=== PATIENT | female | born 1975 | race Caucasian/White ===

== ENCOUNTER 2020-06-03 07:02 | Outpatient (REF) | payer OTHER, SELFPAY ==
[2020-06-03 10:45] LABS: MANUAL DIFF FLAG NO
[2020-06-03 10:49] LABS: Basophils Percent Auto 0.4 % (0-2); Eosinophils Absolute Auto 0.3 X10*3/uL (0.0-0.4); Hematocrit 40.3 % (37-47); Hemoglobin 13.3 g/dl (12.0-16.0); Imm Gran Abs Auto 0.01 X10*3/uL (0.00-0.03); Imm Gran Pct Auto 0.2 % (0.0-0.4); Lymphocytes Absolute Auto 1.3 X10*3/uL (1.2-4.9); Lymphocytes Percent Auto 28.2 % (20-40); Mean Corpuscular Hemoglobin 29.2 pg (27.0-33.0); Mean Corpuscular Volume 88.6 fL (80-98); Mean Platelet Volume 10.3 fL (9.4-12.3); Monocytes Absolute Auto 0.5 X10*3/uL (0.1-1.2); Monocytes Percent Auto 10.5 % (2-11); Neutrophils Absolute Auto 2.5 X10*3/uL (2.0-8.3); Neutrophils Percent Auto 54.7 % (45-73); Platelet Count 234 X10*3/uL (160-400); Red Blood Count 4.55 X10*6/uL (4.20-5.50); White Blood Count 4.7 X10*3/uL (4.8-10.8)
[2020-06-03 11:29] LABS: Creatinine Urine 120.65 mg/dL; Microalbum/Creatinine Ratio Ur 20.7 ug/mg cr
[2020-06-03 11:33] LABS: Alanine Aminotransferase 17 U/L (0-31); Albumin Level 4.3 g/dL (3.5-5.0); Alkaline Phosphatase 52 U/L (39-117); Anion Gap 11 (12-20); Aspartate Amino Transferase 19 U/L (5-31); Bilirubin Total 0.6 mg/dL (0.0-1.0); Blood Urea Nitrogen 17 mg/dL (9-16); Calcium 9.2 mg/dL (8.4-10.2); Carbon Dioxide 26 mmol/L (22-29); Chloride 104 mmol/L (96-108); Cholesterol 197 mg/dL; Estimated Glomerular Filt Rate > 60; Glucose Random 74 mg/dL (60-115); HDL Cholesterol 73 mg/dL; LDL Cholesterol Calculated 114 mg/dl; Potassium 4.2 mmol/L (3.3-5.1); Sodium 137 mmol/L (135-145); Total Protein 6.9 g/dL (6.5-8.0); Triglycerides 52 mg/dL
[2020-06-03 11:55] LABS: Free T4 (Free Thyroxine) 1.32 ng/dL (0.71-1.85); Thyroid Stimulating Hormone 0.73 uIU/mL (0.32-4.0)
[2020-06-03 12:22] LABS: Folate 7.2 ng/mL (> or = 4.0); Vitamin B12 302 pg/mL (200-900)
== END 2020-06-03 07:03 | disposition home or self-care (01) ==
LOC: HO.WFDLDS 07:02
PROVIDERS: Visit Provider Internal Medicine
DX: E11.65 Type 2 diabetes mellitus with hyperglycemia (principal); E03.9 Hypothyroidism, unspecified; E78.00 Pure hypercholesterolemia, unspecified
CPT/HCPCS: 36415; 80053; 80061; 82043; 82607; 82746; 84439; 84443; 85025

== ENCOUNTER 2021-02-08 13:24 | Outpatient (REF) | payer OTHER, SELFPAY ==
--- NOTE | ~2021-02-08 | MM_ITS ---
EXAMINATION: MM SCREENING DIGITAL BREAST TOMOSYNTHESIS, BILATERAL CLINICAL INFORMATION: Screening. Asymptomatic. The lifetime risk of breast cancer based on the Tyrer-Cuzick Model is 27%. COMPARISON: Mammography: 07/14/2018, 06/24/2017 (baseline) TECHNIQUE: Digital breast tomosynthesis is performed in both the craniocaudal and mediolateral oblique views along with computer-aided detection (CAD). Synthesized 2D images are generated from the tomosynthesis. FINDINGS: The breasts are heterogeneously dense, which may obscure small masses (ACR BI-RADS breast composition Category c). There are no significant masses, abnormal calcifications, or other abnormalities. Breast tissue composition borders on extremely dense. Parenchymal pattern is similar to prior studies. The axilla and skin contours are unremarkable. No significant changes. MM/MM tomosynthesis screening BI IMPRESSION: No mammographic evidence of malignancy. ASSESSMENT: BI-RADS 1: Negative RECOMMENDATION: Routine annual mammography screening. This patient's information was entered into a reminder system with a target due date for their next mammogram.
== END 2021-02-08 13:25 | disposition home or self-care (01) ==
LOC: HO.MAMMO 13:24
PROVIDERS: PCP Internal Medicine; Visit Provider Internal Medicine
DX: Z12.31 Encounter for screening mammogram for malignant neoplasm of breast (principal)
CPT/HCPCS: 77063; 77067

== ENCOUNTER 2021-03-24 13:20 | Outpatient (REF) | payer OTHER, SELFPAY ==
[2021-03-24 13:38] LABS: MANUAL DIFF FLAG NO
[2021-03-24 14:20] LABS: Basophils Percent Auto 0.6 % (0-2); Eosinophils Absolute Auto 0.2 X10*3/uL (0.0-0.4); Eosinophils Percent Auto 3.4 % (0-4); Hemoglobin 12.7 g/dl (12.0-16.0); Imm Gran Abs Auto 0.02 X10*3/uL (0.00-0.03); Imm Gran Pct Auto 0.4 % (0.0-0.4); Lymphocytes Absolute Auto 1.2 X10*3/uL (1.2-4.9); Lymphocytes Percent Auto 24.1 % (20-40); Mean Corpuscular HGB Conc 32.6 g/dl (31.0-35.0); Mean Corpuscular Hemoglobin 28.3 pg (27.0-33.0); Mean Corpuscular Volume 86.9 fL (80.0-98.0); Mean Platelet Volume 10.1 fL (9.4-12.3); Monocytes Absolute Auto 0.4 X10*3/uL (0.1-1.2); Neutrophils Absolute Auto 3.3 x10*3/uL (2.0-8.3); Neutrophils Percent Auto 64.5 % (45-73); Platelet Count 242 X10*3/uL (160-400); Red Blood Count 4.49 X10*6/uL (4.20-5.50); Red Cell Distribution Width 13.2 % (11.0-16.0)
[2021-03-24 14:26] LABS: Estimated Average Glucose 140 mg/dL; Hemoglobin A1c % 6.5 %
[2021-03-24 14:47] LABS: Creatinine Urine 29.33 mg/dL; Microalbumin Urine < 5.0 mg/L
[2021-03-24 14:52] LABS: Alanine Aminotransferase 9 U/L (0-31); Albumin Level 4.3 g/dL (3.5-5.0); Alkaline Phosphatase 58 U/L (39-117); Anion Gap 12 (12-20); Aspartate Amino Transferase 18 U/L (5-31); Bilirubin Total 0.4 mg/dL (0.0-1.0); Blood Urea Nitrogen 16 mg/dL (9-16); Calcium 9.5 mg/dL (8.4-10.2); Carbon Dioxide 25 mmol/L (22-29); Chloride 102 mmol/L (96-108); Cholesterol 217 mg/dL; Estimated Glomerular Filt Rate > 60; Glucose Random 189 mg/dL (60-115); HDL Cholesterol 83 mg/dL; LDL Cholesterol Calculated 119 mg/dl; Potassium 4.2 mmol/L (3.3-5.1); Sodium 135 mmol/L (135-145); Total Protein 7.1 g/dL (6.5-8.0); Triglycerides 78 mg/dL
[2021-03-24 15:13] LABS: Free T4 (Free Thyroxine) 1.02 ng/dL (0.71-1.85); Thyroid Stimulating Hormone 3.59 uIU/mL (0.32-4.0); Vitamin D 25-OH Total 25.8 ng/mL (>30)
[2021-03-24 15:34] LABS: Folate 12.1 ng/mL (> or = 4.0); Vitamin B12 349 pg/mL (200-900)
== END 2021-03-24 13:21 | disposition home or self-care (01) ==
LOC: HO.LAB 13:20
PROVIDERS: PCP Internal Medicine; Visit Provider Internal Medicine
DX: E78.00 Pure hypercholesterolemia, unspecified (principal); E10.65 Type 1 diabetes mellitus with hyperglycemia; E03.9 Hypothyroidism, unspecified
CPT/HCPCS: 36415; 80053; 80061; 82043; 82306; 82607; 82746; 83036; 84439; 84443; 85025

== ENCOUNTER 2021-09-02 06:32 | Day surgery (SDC) | payer OTHER, SELFPAY ==
[2021-09-02] VITALS (8 sets, daily range): BP systolic 97–118; BP diastolic 53–68; PULSE 45–64; RESP 14–18; TEMP 36.3–36.6; O2SAT 98–100; BMI 25.7
--- NOTE | 2021-09-02 07:05 | P.OP_ITS ---
Operative Note Operative Note Date of Service: 09/02/21 Narrative: Preop diagnosis: [Incarcerated ventral hernia, epigastric region] Postop diagnosis: [Same, 6mm fascial defect] Procedure: [Open repair of epigastric hernia with ) polypropylene suture] Surgeon: Danial Colin MD Assist: [none] Anesthesia: [General LMA] Estimated blood loss: [3cc] Specimen: [None] Intraoperative findings: [Viable properitoneal fat was incarcerated through a 6 mm linea alba fascial defect.] Indications: [The patient is a 46-year-old woman with type 1 diabetes who has had a small ventral/epigastric hernia that has persisted since her last and slowly enlarged becoming more symptomatic. Repair was indicated. Options were discussed with the patient including the option of a 2nd opinion, which was declined. I reviewed the inherent risks to hernia repair which include, but are not limited to: Bleeding, infection, hernia recurrence especially if weight gain occurs, wound complications such as hematoma and seroma and need for another procedure, activity restrictions postoperatively were also reviewed and apparently understood. The patient seemed understand all of her options wanted to proceed.] Procedure: [The patient was identified by myself and an interval history ob tained. Being no changes, the patient was marked by myself and brought into the operating suite. 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 She was placed supine on the operating room table and MAC administered with excellent effect. An appropriate time-out was performed. The patient's abdomen was widely prepped and draped in the usual manner using chlorhexidine. I confirmed the preoperatively marked hernia and after infiltrating local, a vertical linear incision was made immediately over the hernia. Dissection was carefully carried down to the rectus fascia and the hernia circumferentially dissected. It contain viable properitoneal fat. After completely dissecting the hernia, fascial margins were freshened and opened and the hernia reduced. Next, 0 polypropylene suture in a [id number] was used to close the defect. The area was inspected for hemostasis which was good. The subcu pocket closed with 3-0 Polysorb and skin closed with 4-0 Monocryl subcuticular sutures. The area was washed and dried, Mastisol and Steri-Strips applied followed by sterile dressings. Patient tolerated the procedure well and was sent to the recover in stable condition. All sponge needle instrument counts were correct. At the patient's request, I called her , Ugo at [phone] and apprised him of the procedure, findings, activity restrictions, pain management. His questions seemed to be satisfactorily answered.]
--- NOTE | 2021-09-02 07:37 | HO.ANESPROP2 ---
HPI - Anesthesia Eval Consult details Narrative: 46 yo female patient for repair of ventral hernia PMFSH Active Problems Active Problems: All Active Problems (Updated 08/13/21 @ 12:34 by Danial Colin MD) Incarcerated ventral hernia (Acute) Cervical cancer screening (Acute) Generalized anxiety disorder (Acute) Onychomycosis (Acute) Breast cancer screening by mammogram (Acute) Annual physical exam (Acute) Hypercholesterolemia (Acute) Diabetes mellitus type 1 (Acute) Hypothyroid (Acute) Was on lisinopril for kidneys secondary to h/o DM. Not taking anymore Past Medical History Medical History Diabetes mellitus type 1 GERD (gastroesophageal reflux disease) Hypercholesterolemia Hypothyroid Leukopenia Family History Family History Father Alive and well Mother Alive and well Breast cancer Maternal Grandmother Ovarian cancer Paternal Aunt Breast cancer Paternal Grandmother Schizophrenia Family history of problems with anesthesia: No Surgical History Surgical History History of section History of tubal ligation Hx of radioactive iodine thyroid ablation History of Problems with Anesthesia: No Social History Social History Housing: House Alcohol intake: current Alcohol intake frequency: a few times a month Patient Tobacco Use Status: Never used Tobacco e-Cigarette/Vaping Use: Never Used Second Hand Smoke Exposure: No Use of substances other than those prescribed or required for medical reasons: No Advance Directives: No Advance Directives Information Provided: Yes Current occupational status: employed Meds Allergies Allergy/AdvReac Type Severity Reaction Status Date / Time tree nut [TREE NUT] Allergy Severe ANAPHYLAXIS Verified 08/26/21 15:24 lisinopril Allergy Unknown cough Verified 08/26/21 15:24 Home Medications Medication Instructions Recorded Confirmed Last Taken Type cholecalciferol (vitamin D3) 50 50 mcg PO DAILY 12/23/20 08/26/21 Unknown History mcg (2,000 unit) capsule Exam Exam Date and Time: September 02, 2021 0737 Height,Weight and Vital Signs: Height 5 ft 4 in Weight 68.039 kg Last Vital Signs Temp 97.9 F 09/02/21 07:04 Pulse 54 09/02/21 07:04 Resp 15 09/02/21 07:04 BP 115/68 09/02/21 07:04 Pulse Ox 100 09/02/21 07:04 O2 Del Method 09/02/21 07:04 Pertinent Lab Results Pertinent Lab Results: Lab Results 09/02/21 Range/Units 07:14 POC Glucose 158 H (60-115) mg/dL Airway Mallampati Class: II TM Dist: >3cm Neck ROM: Full Loose/Missing/Broken Teeth: No (Patient denies) Heart: RRR Lungs: CTAB Assessment and Plan Assessment Anesthesia Assessment: Anesthesia Plan Discussed and Chart Reviewed Final Anesthetic Review Family History of Problems with Anesthesia: No History of Problems with Anesthesia: No NPO: Yes ASA Class: II Final Preanesthetic Review: No Changes in Pt Med Stat, Meds/Allgs Chart Reviewed, Consent Obtained/Reviewed and Anes Risks/Benef Reviewed Patient Risk: Low Procedure Risk: Low Assessment/Block/Sedation in SS: Assess/Block/Sedation-SS Anesthetic Plan Anesthetic Plan: GA Disposition: Standard PACU
[2021-09-02 07:41] LABS: Glucose, Whole Blood 158 mg/dL (60-115)
[2021-09-02] MEDS: Heparin Sodium,Porcine 5,000 UNIT/ML VIAL 5000 UNIT SUBCUT (07:45)
--- NOTE | 2021-09-02 07:49 | PC.NURSE ---
per anesthesia/dr torrez ok to leave insulin pump on at basal rate
== END 2021-09-02 10:45 | disposition home or self-care (01) ==
LOC: HO.SSS 06:32
PROVIDERS: PCP Internal Medicine; Visit Provider Surgery
PROC: (CPT 49561; principal; 2021-09-02 08:20)
DX: K43.6 Other and unspecified ventral hernia with obstruction, without gangrene (principal); K21.9 Gastro-esophageal reflux disease without esophagitis; E78.00 Pure hypercholesterolemia, unspecified; E03.9 Hypothyroidism, unspecified; D72.819 Decreased white blood cell count, unspecified; E10.9 Type 1 diabetes mellitus without complications; Z79.4 Long term (current) use of insulin; Z96.41 Presence of insulin pump (external) (internal); Z79.899 Other long term (current) drug therapy; Z88.8 Allergy status to other drugs, medicaments and biological substances
CPT/HCPCS: 49561; 82947; J0690; J1100; J1642; J2250; J2405; J2795; J3010

== ENCOUNTER 2021-12-28 13:05 | Outpatient (REF) | payer OTHER, SELFPAY ==
[2021-12-28 13:12] LABS: MANUAL DIFF FLAG NO
[2021-12-28 13:52] LABS: Basophils Percent Auto 0.6 % (0-2); Eosinophils Absolute Auto 0.1 X10*3/uL (0.0-0.4); Eosinophils Percent Auto 1.9 % (0-4); Hematocrit 38.2 % (37.0-47.0); Hemoglobin 12.4 g/dl (12.0-16.0); Imm Gran Abs Auto 0.02 X10*3/uL (0.00-0.03); Imm Gran Pct Auto 0.3 % (0.0-0.4); Lymphocytes Absolute Auto 1.4 X10*3/uL (1.2-4.9); Lymphocytes Percent Auto 22.2 % (20-40); Mean Corpuscular HGB Conc 32.5 g/dl (31.0-35.0); Mean Corpuscular Hemoglobin 28.1 pg (27.0-33.0); Mean Corpuscular Volume 86.6 fL (80.0-98.0); Mean Platelet Volume 9.9 fL (9.4-12.3); Monocytes Absolute Auto 0.4 X10*3/uL (0.1-1.2); Monocytes Percent Auto 6.7 % (2-11); Neutrophils Absolute Auto 4.3 x10*3/uL (2.0-8.3); Neutrophils Percent Auto 68.3 % (45-73); Platelet Count 227 X10*3/uL (160-400); Red Blood Count 4.41 X10*6/uL (4.20-5.50); Red Cell Distribution Width 12.9 % (11.0-16.0); White Blood Count 6.3 X10*3/uL (4.8-10.8)
[2021-12-28 15:09] LABS: Appearance Urine Clear; Color Urine Yellow; Glucose Urine UA 250 mg/dL (Negative); Leukocyte Esterase Urine Negative (Negative); Nitrite Urine Negative (Negative); Specific Gravity - Urine >= 1.030 (1.005-1.025); Urine Blood Negative (Negative); Urine Ketones Negative (Negative); Urine Protein Negative (Neg-Trace)
[2021-12-28 15:11] LABS: Bacteria Urine None Seen (None Seen); Hyaline Casts Urine 0-2 /LPF (0-2); RBC Urine 0-2 /HPF (0-2); WBC Urine 0-5 /HPF (0-5)
[2021-12-28 15:37] LABS: Alanine Aminotransferase 9 U/L (0-31); Albumin Level 4.2 g/dL (3.5-5.0); Alkaline Phosphatase 56 U/L (39-117); Anion Gap 13 (12-20); Aspartate Amino Transferase 17 U/L (5-31); Bilirubin Total 0.5 mg/dL (0.0-1.0); Blood Urea Nitrogen 20 mg/dL (9-16); Calcium 9.2 mg/dL (8.4-10.2); Carbon Dioxide 27 mmol/L (22-29); Chloride 102 mmol/L (96-108); Estimated Glomerular Filt Rate > 60; Free T4 (Free Thyroxine) 1.09 ng/dL (0.71-1.85); Glucose Random 118 mg/dL (60-115); Sodium 138 mmol/L (135-145); Thyroid Stimulating Hormone 1.65 uIU/mL (0.32-4.0); Total Protein 6.6 g/dL (6.5-8.0)
== END 2021-12-28 13:06 | disposition home or self-care (01) ==
LOC: HO.LAB 13:05
PROVIDERS: PCP Internal Medicine; Visit Provider Internal Medicine
DX: R51.9 Headache, unspecified (principal)
CPT/HCPCS: 36415; 80053; 81001; 84439; 84443; 85025

== ENCOUNTER 2022-02-10 13:19 | Outpatient (REF) | payer OTHER, SELFPAY ==
--- NOTE | ~2022-02-10 | MM_ITS ---
EXAMINATION: MM SCREENING DIGITAL BREAST TOMOSYNTHESIS, BILATERAL CLINICAL INFORMATION: Screening. Asymptomatic. Family history breast cancer, mother. The lifetime risk of breast cancer based on the Tyrer-Cuzick Model is 22%. COMPARISON: Mammography: 02/08/2021, 07/14/2018, 06/24/2017 (baseline) TECHNIQUE: Digital breast tomosynthesis is performed in both the craniocaudal and mediolateral oblique views along with computer-aided detection (CAD). Synthesized 2D images are generated from the tomosynthesis. FINDINGS: The breasts are heterogeneously dense, which may obscure small masses (ACR BI-RADS breast composition Category c). There are no significant masses, abnormal calcifications, or other abnormalities. Parenchymal pattern is similar to prior studies. There is no developing density or architectural abnormality. Breast tissue composition borders on extremely dense. The axilla and skin contours are unremarkable. No significant changes. MM/MM tomosynthesis screening BI IMPRESSION: No mammographic evidence of malignancy. ASSESSMENT: BI-RADS 1: Negative RECOMMENDATION: Routine annual mammography screening. This patient's information was entered into a reminder system with a target due date for their next mammogram.
== END 2022-02-10 13:20 | disposition home or self-care (01) ==
LOC: HO.MAMMO 13:19
PROVIDERS: PCP Internal Medicine; Visit Provider Internal Medicine
DX: Z12.31 Encounter for screening mammogram for malignant neoplasm of breast (principal)
CPT/HCPCS: 77063; 77067

== ENCOUNTER 2022-08-29 14:19 | Outpatient (AMB) | payer OTHER, SELFPAY ==
[2022-08-29 14:37] VITALS: BP 103/62; PULSE 67; BMI 26.0
--- NOTE | 2022-08-29 14:37 | MHC.OFFVIS ---
Intake Vital Signs 08/29/22 14:37 Height 5 ft 4 in Weight 151 lb 3.794 oz BMI 26.0 BP 103/62 Blood Pressure Location Lt brachial Position Sitting Pulse 67 Intake Visit Reasons: other fecal abnormalities Intake Note: Elsa presents in office as a new.patient for fecal abnormalities PT CC: pt reports having no concerns pt denies any other GI Issues Ignition Specialist Required: No Accompanied by: Self / Same As Patient Allergies tree nut [TREE NUT] Allergy (Severe, Verified 08/29/22 14:38) ANAPHYLAXIS lisinopril Allergy (Unknown, Verified 08/29/22 14:38) cough HPI other fecal abnormalities HPI Details 47 year old? female here today for pre colonoscopy screening.? Patient was sent to us by her PCP.? Patient had positive Cologuard in July. Denies any melena, hematochezia, unintentional weight loss or ribbon like stools. This is her first colonoscopy screening.? Patient denies any gastrointestinal symptoms in the past or at present.? Denies any personal or family history of gastrointestinal disease, colon polyps, or cancer.? Denies history of difficulty with sedation or anesthesia in the past.? Negative for history of sleep apnea.? Denies any history of cardiac, renal, pulmonary, or hepatic disease.?? No history of infectious? diseases like hepatitis A, B, C, HIV or tuberculosis.? Patient is not on any anticoagulation therapy. Patient is type 1 diabetic and is on insulin pump. She will adjust her insulin depending on what her blood sugars will be the day before the procedure. [facility] Medical History Breast cancer screening by mammogram Diabetes mellitus type 1 GERD (gastroesophageal reflux disease) Hypercholesterolemia Hypothyroid Leukopenia Surgical History H/O ventral hernia repair History of section History of tubal ligation Hx of radioactive iodine thyroid ablation Family History Father Alive and well Mother Alive and well Breast cancer Maternal Grandmother Ovarian cancer Paternal Aunt Breast cancer Paternal Grandmother Schizophrenia Mental health disorder Social History Housing: House Alcohol intake: current Alcohol intake frequency: a few times a month Patient Tobacco Use Status: Never used Tobacco e-Cigarette/Vaping Use: Never Used Second Hand Smoke Exposure: No Current occupational status: employed Cognitive needs: No Hearing needs: No Vision needs: No Review of Systems Const Denies weight gain and Denies weight loss ENT Reports no additional complaints, Denies dysphagia and Denies odynophagia Card Reports no additional complaints Resp Reports no additional complaints GI Denies abdominal pain, Denies belching, Denies melena, Denies bloating, Denies change in bowel habits, Denies dysphagia, Denies excessive flatus, Denies dyspepsia, Denies heartburn, Denies diarrhea, Denies loose stools, Denies nausea, Denies odynophagia and Denies vomiting Reports no additional complaints Musc Reports no additional complaints Neuro Reports no additional complaints Psych Reports no additional complaints Endo Reports no additional complaints Physical Exam Vital Signs: Last Vital Signs Pulse 67 08/29/22 14:37 BP 103/62 08/29/22 14:37 BMI result Body Mass Index 26.0 Const General: healthy appearing, no acute distress and well developed Nutritional Appearance: well nourished Orientation/consciousness: patient oriented x3 HEENT Head: Yes normal to inspection, Yes normocephalic and Yes atraumatic Face and sinus: Yes normal facial exam Mouth: Normal oral and palatal mucosa present Throat: Yes posterior oropharynx normal, Yes tonsils normal and Yes uvula midline Eyes General: appearance normal, both eyes and all related structures Neck Neck: Yes normal visual inspection, Yes full ROM and Yes trachea midline Thyroid: Thyroid normal Resp Effort & Inspection: normal respiratory effort, able to speak in complete sentences, no tracheal deviation and symmetric chest movement Auscultation: clear to auscultation bilaterally Cardio Rate: regular rate Heart sounds: S1 normal heart sound present and S2 normal heart sound present GI Inspection: Yes normal to inspection and No distended Palpation (GI): Soft to palpation, not firm, nontender and No hepatosplenomegaly present Auscultation: normal bowel sounds General: Yes no CVA tenderness Back/Spine/Pelvis Back: no CVA tenderness Skin General skin exam: elasticity normal, turgor normal and dry skin Neuro General: patient oriented x3 Psych Appearance: grossly normal Mental Status: mental status grossly normal Speech and movement: Normal speech and movement present Affect: normal affect Assessment & Plan Assessment & Plan (1) Positive colorectal cancer screening using Cologuard test: Comment: July 2022 Code(s): R19.5 - Other fecal abnormalities Plan: Will book patient for procedure today (2) Colon cancer screening: Code(s): Z12.11 - Encounter for screening for malignant neoplasm of colon Plan: Patient denies any GI, cardiac or respiratory symptoms.? Denies any issues with anesthesia in the past.? Denies any history of sleep apnea.? No history infectious diseases in the past or present.? Not on any anticoagulation therapy.? No family or personal history of colon cancer or polyps.? Patient denies melena, hematochezia, unintentional weight loss or ribbon like stools.? Discussed at length the pre-procedure,? prep, diet & medications as well as what to expect prior, during and after the procedure.?? Stressed the importance of good bowel prep. ?Recommended the use of Vaseline or Calmoseptine OTC & baby wipes with bowel movements to promote comfort.? ?Patient verbalizes understanding and agrees to plan of care.? She was given the opportunity to ask questions and all questions answered.? We will see her after the procedure.? Medications: New bisacodyl (Dulcolax (bisacodyl)) take 2 tabs at noon the day before your colonoscopy 10 mg (2 x 5 mg) PO ONCE 1 day 2 tabs 0RF Z12.11 - Encounter for screening for malignant neoplasm of colon polyethylene glycol 3350 (Miralax) As directed by gastroenterology department at [facility] 238 grams PO ONCE 238 grams 0RF Z12.11 - Encounter for screening for malignant neoplasm of colon Coding Level of Care Code New Pt Level 3 (82845) Diagnoses Positive colorectal cancer screening using Cologuard test R19.5 Colon cancer screening Z12.11 Time Spent (min) 40 Comment 30 minutes spent with patient and additional 10 minutes spent reviewing her records
== END 2022-08-29 16:13 | disposition home or self-care (01) ==
PROVIDERS: PCP Internal Medicine; Visit Provider Nurse Practitioner Family
DX: R19.5 Other fecal abnormalities (principal); Z12.11 Encounter for screening for malignant neoplasm of colon
CPT/HCPCS: 99203

== ENCOUNTER → 2022-08-29 14:19 | Outpatient (BNVA) | payer OTHER, SELFPAY | PROVIDERS: PCP Internal Medicine; Visit Provider Nurse Practitioner Family ==

== ENCOUNTER 2022-12-09 07:26 | Day surgery (SDC) | payer OTHER, SELFPAY ==
[2022-12-07 10:44] VITALS: BMI 25.9
--- NOTE | 2022-12-08 11:47 | HO.ANESPROP2 ---
Documented by User: Flaca Campos NP 12/08/22 11:48 HPI - Anesthesia Eval Consult details Narrative: 47yo F for Colonoscopy s/p tubal PMFSH Active Problems Active Problems: All Active Problems (Updated 07/29/22 @ 18:07 by Elysia Mak MD) Positive colorectal cancer screening using Cologuard test (Acute) Colon cancer screening (Acute) COVID-19 virus infection (Acute) Headache (Acute) Incarcerated ventral hernia (Acute) Cervical cancer screening (Acute) Generalized anxiety disorder (Acute) Onychomycosis (Acute) Annual physical exam (Acute) Hypercholesterolemia (Acute) Diabetes mellitus type 1 (Acute) Hypothyroid (Acute) Past Medical History Medical History Breast cancer screening by mammogram Hypercholesterolemia GERD (gastroesophageal reflux disease) Leukopenia Diabetes mellitus type 1 Hypothyroid Family History Family History Father Alive and well Mother Alive and well Breast cancer Maternal Grandmother Ovarian cancer Paternal Aunt Breast cancer Paternal Grandmother Schizophrenia Mental health disorder Family history of problems with anesthesia: No Surgical History Surgical History H/O ventral hernia repair History of tubal ligation Hx of radioactive iodine thyroid ablation History of section History of Problems with Anesthesia: No Social History Social History Housing: House Alcohol intake: current Alcohol intake frequency: a few times a month Patient Tobacco Use Status: Never used Tobacco e-Cigarette/Vaping Use: Never Used Second Hand Smoke Exposure: No Current occupational status: employed Cognitive needs: No Hearing needs: No Vision needs: No Meds Allergies Allergy/AdvReac Type Severity Reaction Status Date / Time tree nut [TREE NUT] Allergy Severe ANAPHYLAXIS Verified 12/09/22 08:14 lisinopril Allergy Unknown cough Verified 12/09/22 08:14 Home Medications Medication Instructions Recorded Confirmed Last Taken Type cholecalciferol (vitamin D3) 50 50 mcg PO DAILY 12/23/20 12/09/22 Unknown History mcg (2,000 unit) capsule Exam Exam Date and Time: December 08, 2022 1147 Height,Weight and Vital Signs: Height 5 ft 4 in Weight 68.492 kg Assessment and Plan Assessment Anesthesia Assessment: Chart Reviewed Final Anesthetic Review Family History of Problems with Anesthesia: No History of Problems with Anesthesia: No Documented by User: Kimberly Larson MD 12/09/22 08:16 [facility] Past Medical History Medical History Breast cancer screening by mammogram Hypercholesterolemia GERD (gastroesophageal reflux disease) Leukopenia Diabetes mellitus type 1 Hypothyroid Family History Family History Father Alive and well Mother Alive and well Breast cancer Maternal Grandmother Ovarian cancer Paternal Aunt Breast cancer Paternal Grandmother Schizophrenia Mental health disorder Surgical History Surgical History H/O ventral hernia repair History of tubal ligation Hx of radioactive iodine thyroid ablation History of section Social History Social History Housing: House Alcohol intake: current Alcohol intake frequency: a few times a month Patient Tobacco Use Status: Never used Tobacco e-Cigarette/Vaping Use: Never Used Second Hand Smoke Exposure: No Current occupational status: employed Cognitive needs: No Hearing needs: No Vision needs: No Meds Allergies Allergy/AdvReac Type Severity Reaction Status Date / Time tree nut [TREE NUT] Allergy Severe ANAPHYLAXIS Verified 12/09/22 08:14 lisinopril Allergy Unknown cough Verified 12/09/22 08:14 Home Medications Medication Instructions Recorded Confirmed Last Taken Type cholecalciferol (vitamin D3) 50 50 mcg PO DAILY 12/23/20 12/09/22 Unknown History mcg (2,000 unit) capsule Exam Airway Mallampati Class: II TM Dist: >3cm Neck ROM: Full Loose/Missing/Broken Teeth: No Heart: RRR Lungs: CTA Assessment and Plan Assessment Anesthesia Assessment: Anesthesia Plan Discussed Final Anesthetic Review NPO: Yes ASA Class: III Final Preanesthetic Review: Meds/Allgs Chart Reviewed, Consent Obtained/Reviewed and Anes Risks/Benef Reviewed Patient Risk: Intermediate Procedure Risk: Low Anesthetic Plan Anesthetic Plan: MAC: Disposition: Standard PACU
--- NOTE | 2022-12-09 07:25 | MHC.SHP ---
Pre-Procedural Eval Section A Date of Service: 12/09/22 The patient is an INPATIENT: No The History & Physical has been completed within 30 days and I have reviewed it.: No Section B Chief Complaint: Other fecal abnormalities Relevant Family History (Specify if Yes): No Relevant Social History: None Present Medications: see Short Stay Collaborative assessment Medical History: Significant History (Diabetes mellitus type 1 GERD (gastroesophageal reflux disease) Hypercholesterolemia Hypothyroid Leukopenia) History of Previous Operations: Relevant previous surgery/procedure and date(s) (H/O ventral hernia repair History of section History of tubal ligation Hx of radioactive iodine thyroid ablation) Allergies: Allergies Allergy/AdvReac Type Severity Reaction Status Date / Time tree nut [TREE NUT] Allergy Severe ANAPHYLAXIS Verified 08/29/22 14:38 lisinopril Allergy Unknown cough Verified 08/29/22 14:38 Review of Systems Sugical H&P ROS: Negative: Constitution, Cardiovascular, Respiratory and Gastrointestinal Exam Surgical H&P Exam: Normal: Heart, Normal: Lungs, Normal: Extremities and Normal: Abdomen Plan Diagnosis/Plan: Unchanged I have reviewed the history and physical and performed a pertinent physical examination on my patient. No changes have occurred unless specified. Time Spent With Patient Time: Total time managing care of this patient today ____ minutes.
[2022-12-09 07:46] VITALS: BP 107/60; PULSE 78; RESP 15; TEMP 36.7; O2SAT 99
[2022-12-09] MEDS: Lactated Ringers 1,000 ML 100 ML IVCONT (08:12)
[2022-12-09 08:16] LABS: Glucose, Whole Blood 171 mg/dL (60-115)
--- NOTE | 2022-12-09 08:35 | W.PM.OPN ---
Operative Note Operative Note Date of Service: 12/09/22 Narrative: COLONOSCOPY TILL CECUM WITH SNARE POLYPECTOMY, SUBMUCOSAL INJECTION AND HEMOCLIP PLACEMENT Pre-op diagnosis: screening, positive Cologuard (1st colonoscopy) Post-op diagnosis:? colon polyp, hemorrhoids Endoscopist:? Raf Mcnulty MD Anesthesia:?MAC Consent: Indications for the procedure and potential complications of bleeding, perforation, reaction to medications and missed diagnosis were discussed with the patient and informed consent was obtained. Instrument: Olympus PCF H 190 L variable stiffness pediatric colonoscope Monitoring: Vital signs and clinical assessment, intermittent blood pressure monitoring, continuous EKG monitoring, Pulse oximetry and Carbon Dioxide monitoring were done throughout the procedure. Please see anesthesia flowsheet. Colon withdrawl time was 24 minutes. Procedure: The patient was placed in the left lateral decubitis position and pre-procedure medications were administered. After a digital rectal examination of the ano-rectum, the video colonoscope was inserted into the rectum and advanced through the colon to the cecum. The colonoscope was slowly withdrawn in a retrograde panoramic fashion and the colon mucosa was carefully examined including a retroflexed view of the rectum. Findings and interventions are described below. Procedure Difficulty: colon was long and tortuous and there was some loop formation Findings: Terminal Ileum: Not evaluated Cecum: A 2.5 x 3 cms flat polyp raised with 5 cc of Eleview and removed with a stiff, hot snare. Polypectomy site was closed with 3 hemoclips and marked by Dayana ink Ascending Colon: Normal Transverse Colon: Normal Descending Colon: Normal Sigmoid Colon: normal Rectum: Normal Ano-rectum: Small internal hemorrhoids Colon preparation: Good Impression and Post Procedure Diagnosis: Colonoscopy Findings: One large flat polyp removed Moderate hemorrhoids on retroflexed exam. Plan: Await pathology results Patient has an appointment on 12/21/22 in the GI Clinic with Nupur Eastman FNP-BC . Repeat Colonoscopy interval based on path results - in 6 to 12 months if polyp is adenomatous and 10 years if polyps are hyperplastic (adult colonoscope for future colonoscopies). Above findings were reviewed with the patient and colon polyps and diverticulosis handouts were given in the discharge area.
[2022-12-09 09:20] VITALS: BP 109/59; PULSE 74; RESP 18; TEMP 36.4; O2SAT 98
[2022-12-09 09:35] VITALS: BP 107/63; PULSE 68; RESP 18; TEMP 36.1; O2SAT 100
== END 2022-12-09 10:03 | disposition home or self-care (01) ==
PROVIDERS: PCP Internal Medicine; Visit Provider Internal Medicine Gastroenterology
PROC: 0DJD8ZZ Inspection of Lower Intestinal Tract, Via Natural or Artificial Opening Endoscopic (ICD-10-PCS; CPT 45378; principal; 2022-12-09 08:30)
DX: R19.5 Other fecal abnormalities (principal); D12.0 Benign neoplasm of cecum; K64.8 Other hemorrhoids; K21.9 Gastro-esophageal reflux disease without esophagitis; D72.819 Decreased white blood cell count, unspecified; E78.00 Pure hypercholesterolemia, unspecified; E03.9 Hypothyroidism, unspecified; E10.9 Type 1 diabetes mellitus without complications; Z79.4 Long term (current) use of insulin; Z96.41 Presence of insulin pump (external) (internal); Z79.899 Other long term (current) drug therapy; Z88.8 Allergy status to other drugs, medicaments and biological substances
CPT/HCPCS: 45385; 45381; 82947; 88305

== ENCOUNTER → 2022-12-09 07:26 | Outpatient (BNV) | payer OTHER, SELFPAY | PROVIDERS: PCP Internal Medicine; Visit Provider Internal Medicine Gastroenterology | DX: Z12.11 Encounter for screening for malignant neoplasm of colon (principal); R19.5 Other fecal abnormalities; K64.8 Other hemorrhoids; D12.0 Benign neoplasm of cecum | CPT/HCPCS: 45381; 45385 ==

== ENCOUNTER 2022-12-21 13:13 | Outpatient (AMB) | payer OTHER, SELFPAY ==
--- NOTE | 2022-12-21 13:30 | MHC.OFFVIS ---
Intake Vital Signs 12/21/22 13:32 Height 5 ft 4 in Weight 150 lb BMI 25.7 BP 104/67 Blood Pressure Location Lt brachial Position Sitting Pulse 61 Intake Visit Reasons: S/P Cordell; Dr. Mcnulty Intake Note: Patient follow up for Colonoscopy results. Patient denies any GI issues. Car Icer Required: No Accompanied by: Self / Same As Patient Allergies tree nut [TREE NUT] Allergy (Severe, Verified 12/21/22 13:29) ANAPHYLAXIS lisinopril Allergy (Unknown, Verified 12/21/22 13:29) cough HPI S/P Cordell; Dr. Mcnulty HPI Details LAST VISIT Positive colorectal cancer screening using Cologuard test Will book patient for procedure today Colon cancer screening Patient denies any GI, cardiac or respiratory symptoms.? Denies any issues with anesthesia in the past.? Denies any history of sleep apnea.? No history infectious diseases in the past or present.? Not on any anticoagulation therapy.? No family or personal history of colon cancer or polyps.? Patient denies melena, hematochezia, unintentional weight loss or ribbon like stools.? Discussed at length the pre-procedure,? prep, diet & medications as well as what to expect prior, during and after the procedure.?? Stressed the importance of good bowel prep. ?Recommended the use of Vaseline or Calmoseptine OTC & baby wipes with bowel movements to promote comfort.? ?Patient verbalizes understanding and agrees to plan of care.? She was given the opportunity to ask questions and all questions answered.? We will see her after the procedure.? COLONOSCOPY Findings: Terminal Ileum: Not evaluated Cecum: A 2.5 x 3 cms flat polyp raised with 5 cc of Eleview and removed with a stiff, hot snare. Polypectomy site was closed with 3 hemoclips and marked by Dayana ink Ascending Colon: Normal Transverse Colon: Normal Descending Colon: Normal Sigmoid Colon: normal Rectum: Normal Ano-rectum: Small internal hemorrhoids Colon preparation: Good Impression and Post Procedure Diagnosis: Colonoscopy Findings: One large flat polyp removed Moderate hemorrhoids on retroflexed exam. Plan: Repeat Colonoscopy interval based on path results - in 6 to 12 months if polyp is adenomatous and 10 years if polyps are hyperplastic (adult colonoscope for future colonoscopies). PATHOLOGY: Diagnosis Colon, cecal polyp: Sessile serrated lesion/polyp without dysplasia TODAY'S VISIT: Patient is here today for follow-up and to discuss colonoscopy results. Patient had large cecal sessile serrated polyp that was piecemeal removed in 3 pieces. Recommendation was made for colorectal screening in 6-12 months. Patient denies melena, hematochezia, unintentional weight loss or ribbon like stools. Patient denies any dyspepsia, dysphagia or odynophagia. Patient reports that she has been moving her bowels well. Denies any issue with the prep, anesthesia or procedure itself. [facility] Medical History Breast cancer screening by mammogram Hypercholesterolemia GERD (gastroesophageal reflux disease) Leukopenia Diabetes mellitus type 1 Hypothyroid Surgical History H/O ventral hernia repair History of tubal ligation Hx of radioactive iodine thyroid ablation History of section Family History Father Alive and well Mother Alive and well Breast cancer Maternal Grandmother Ovarian cancer Paternal Aunt Breast cancer Paternal Grandmother Schizophrenia Mental health disorder Housing: House Alcohol intake: current Alcohol intake frequency: a few times a month Patient Tobacco Use Status: Never used Tobacco e-Cigarette/Vaping Use: Never Used Second Hand Smoke Exposure: No Current occupational status: employed Cognitive needs: No Hearing needs: No Vision needs: No Review of Systems Const Denies weight gain and Denies weight loss ENT Reports no additional complaints, Denies dysphagia and Denies odynophagia Card Reports no additional complaints Resp Reports no additional complaints GI Denies abdominal pain, Denies belching, Denies melena, Denies bloating, Denies change in bowel habits, Denies dysphagia, Denies excessive flatus, Denies dyspepsia, Denies heartburn, Denies diarrhea, Denies loose stools, Denies nausea, Denies odynophagia and Denies vomiting Reports no additional complaints Musc Reports no additional complaints Neuro Reports no additional complaints Psych Reports no additional complaints Endo Reports no additional complaints Physical Exam Vital Signs: Last Vital Signs Pulse 61 12/21/22 13:32 BP 104/67 12/21/22 13:32 BMI result Body Mass Index 25.7 Const General: healthy appearing, no acute distress and well developed Nutritional Appearance: well nourished Orientation/consciousness: patient oriented x3 HEENT Head: Yes normal to inspection, Yes normocephalic and Yes atraumatic Face and sinus: Yes normal facial exam Mouth: Normal oral and palatal mucosa present Throat: Yes posterior oropharynx normal, Yes tonsils normal and Yes uvula midline Eyes General: appearance normal, both eyes and all related structures Neck Neck: Yes normal visual inspection, Yes full ROM and Yes trachea midline Thyroid: Thyroid normal Resp Effort & Inspection: normal respiratory effort, able to speak in complete sentences, no tracheal deviation and symmetric chest movement Auscultation: clear to auscultation bilaterally Cardio Rate: regular rate Heart sounds: S1 normal heart sound present and S2 normal heart sound present GI Inspection: Yes normal to inspection and No distended Palpation (GI): Soft to palpation, not firm, nontender and No hepatosplenomegaly present Auscultation: normal bowel sounds General: Yes no CVA tenderness Back/Spine/Pelvis Back: no CVA tenderness Skin General skin exam: elasticity normal, turgor normal and dry skin Neuro General: patient oriented x3 Psych Appearance: grossly normal Mental Status: mental status grossly normal Assessment & Plan Assessment & Plan (1) Sessile serrated polyp of colon: Code(s): D12.6 - Benign neoplasm of colon, unspecified (2) Status post colonoscopy: Code(s): Z98.890 - Other specified postprocedural states Plan Large sessile serrated polyp found in cecum. Patient will need a colorectal screening in 6-12 months. Polyp had no dysplasia, however was piecemealed and recommendation is to repeat it in 6 months or so. Please schedule patient for colonoscopy. Will send her prep. Nurse to speak to patient 2 weeks before the procedure to see if she has any questions. Patient is agreeable to this plan and verbalizes understanding of instructions. She was given the opportunity to ask questions and all questions answered. Thank you for allowing me to participate in her care Medications: New bisacodyl (Dulcolax (bisacodyl)) take 2 tabs at noon the day before your colonoscopy 10 mg (2 x 5 mg) PO ONCE 2 tabs 0RF 1 day Z12.11 - Encounter for screening for malignant neoplasm of colon polyethylene glycol 3350 (Miralax) As directed by gastroenterology department at [facility] 238 grams PO ONCE 238 grams 0RF Z12.11 - Encounter for screening for malignant neoplasm of colon Coding Level of Care Code Est Pt Level 3 (57489) Diagnoses Sessile serrated polyp of colon D12.6 Status post colonoscopy Z98.890 Time Spent (min) 30 Comment 20 minutes spent with patient and additional 10 minutes spent reviewing her records
[2022-12-21 13:32] VITALS: BP 104/67; PULSE 61; BMI 25.7
== END 2022-12-21 14:25 | disposition home or self-care (01) ==
PROVIDERS: PCP Internal Medicine; Visit Provider Nurse Practitioner Family
DX: D12.6 Benign neoplasm of colon, unspecified (principal); Z98.890 Other specified postprocedural states
CPT/HCPCS: 99213

== ENCOUNTER → 2022-12-21 13:13 | Outpatient (BNVA) | payer OTHER, SELFPAY | PROVIDERS: PCP Internal Medicine; Visit Provider Nurse Practitioner Family ==

== ENCOUNTER 2022-12-23 08:48 | Outpatient (REF) | payer OTHER, SELFPAY ==
[2022-12-23 10:38] LABS: MANUAL DIFF FLAG NO
[2022-12-23 10:42] LABS: Basophils Percent Auto 0.9 % (0-2); Eosinophils Absolute Auto 0.1 X10*3/uL (0.0-0.4); Eosinophils Percent Auto 2.8 % (0-4); Hematocrit 40.2 % (37.0-47.0); Hemoglobin 13.8 g/dl (12.0-16.0); Imm Gran Abs Auto 0.01 X10*3/uL (0.00-0.03); Imm Gran Pct Auto 0.2 % (0.0-0.4); Lymphocytes Absolute Auto 1.2 X10*3/uL (1.2-4.9); Lymphocytes Percent Auto 24.7 % (20-40); Mean Corpuscular HGB Conc 34.3 g/dl (31.0-35.0); Mean Corpuscular Hemoglobin 30.8 pg (27.0-33.0); Mean Corpuscular Volume 89.7 fL (80.0-98.0); Mean Platelet Volume 9.4 fL (9.4-12.3); Monocytes Absolute Auto 0.4 X10*3/uL (0.1-1.2); Monocytes Percent Auto 8.6 % (2-11); Neutrophils Absolute Auto 2.9 x10*3/uL (2.0-8.3); Neutrophils Percent Auto 62.8 % (45-73); Platelet Count 264 X10*3/uL (160-400); Red Blood Count 4.48 X10*6/uL (4.20-5.50); Red Cell Distribution Width 12.5 % (11.0-16.0); White Blood Count 4.7 X10*3/uL (4.8-10.8)
[2022-12-23 10:56] LABS: Estimated Average Glucose 126 mg/dL
[2022-12-23 11:09] LABS: Alanine Aminotransferase 11 U/L (0-31); Albumin Level 4.2 g/dL (3.5-5.0); Alkaline Phosphatase 53 U/L (39-117); Anion Gap 7 (12-20); Aspartate Amino Transferase 14 U/L (5-31); Bilirubin Total 0.5 mg/dL (0.0-1.0); Blood Urea Nitrogen 16 mg/dL (9-16); Carbon Dioxide 26 mmol/L (22-29); Chloride 110 mmol/L (96-108); Cholesterol 185 mg/dL (<200); Estimated Glomerular Filt Rate > 60; Glucose Random 107 mg/dL (60-115); HDL Cholesterol 70 mg/dL (>40); LDL Cholesterol Calculated 108 mg/dL (<100); Potassium 4.1 mmol/L (3.3-5.1); Sodium 139 mmol/L (135-145); Total Protein 7.1 g/dL (6.5-8.0); Triglycerides 39 mg/dL (<150)
[2022-12-23 11:15] LABS: Thyroid Stimulating Hormone 2.95 uIU/mL (0.32-4.0); Vitamin D 25-OH Total 38.6 ng/mL (>30)
[2022-12-23 11:37] LABS: Folate 10.8 ng/mL (> or = 4.0); Vitamin B12 707 pg/mL (200-900)
[2022-12-23 11:43] LABS: Creatinine Urine 107.03 mg/dL; Microalbum/Creatinine Ratio Ur 7.4 ug/mg cr (<30)
== END 2022-12-23 08:49 | disposition home or self-care (01) ==
LOC: HO.10HDL 08:48
PROVIDERS: Visit Provider Internal Medicine
DX: E78.00 Pure hypercholesterolemia, unspecified (principal); E10.9 Type 1 diabetes mellitus without complications; E03.9 Hypothyroidism, unspecified; E55.9 Vitamin D deficiency, unspecified
CPT/HCPCS: 36415; 80053; 80061; 82043; 82306; 82570; 82607; 82746; 83036; 84439; 84443; 85025

== ENCOUNTER 2023-01-26 09:34 | Outpatient (AMB) | payer OTHER, SELFPAY ==
[2023-01-26 09:35] VITALS: BP 110/66; PULSE 77; O2SAT 99; BMI 25.4
--- NOTE | 2023-01-26 09:35 | A.OFFPC_ITS ---
Vital Signs 3 01/26/23 09:35 Height 5 ft 4 in Weight 148 lb 0.6 oz BMI 25.4 BP 110/66 Blood Pressure Location Lt brachial Position Sitting Pulse 77 Pulse Source Pulse Oximeter Pulse Oximetry (%) 99 Oxygen Delivery Method Room Air Intake Visit Reasons: Annual Exam Intake Note: Patient is here today for a physical. 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: No Allergies tree nut [TREE NUT] Allergy (Severe, Verified 01/26/23 09:35) ANAPHYLAXIS lisinopril Allergy (Unknown, Verified 01/26/23 09:35) cough Medication List - Last Reconciled 01/26/23 by Elysia Mak MD bisacodyl (Dulcolax (bisacodyl)) 10 mg (2 x 5 mg) PO ONCE 1 day cholecalciferol (vitamin D3) 50 mcg PO DAILY flash glucose sensor (FreeStyle Cam 14 Day Sensor kit) As directed glucagon 3 mg/actuation (Baqsimi) 3 mg intranasal ONCE PRN Humalog U-100 Insulin (insulin lispro) 70 - 80 units (0.7 - 0.8 mL) subcut DAILY NS levothyroxine 125 mcg PO DAILY losartan 25 mg PO DAILY polyethylene glycol 3350 (Miralax) 238 grams PO ONCE Tobacco use date assessed: 01/26/23 Dental Screening Dental Screen Date: 01/26/23 Did you have a dental visit in the last 12 months?: Yes Did you have a dental problem in the last 6 months where you did not have access to dental care?: No Was dental information given to patient?: Patient has dentist HPI Annual Exam 2 HPI0 Details 47-year-old female with diabetes mellitu s type 1 hypercholesterolemia hypothyroidism last seen in June 2022. Patient is up-to-date with colonoscopy December 2022 mammogram. Colonoscopy done showing a large sessile serrated polyp and has been advised to retest in 6-12 months. states hair loss for months and not sure why, ? brittle nail, also L thigh mass year, no pain. Has 2 mm on the left thigh these are skin tags [facility] Medical History Breast cancer screening by mammogram Hypercholesterolemia GERD (gastroesophageal reflux disease) Leukopenia Diabetes mellitus type 1 Hypothyroid Surgical History H/O ventral hernia repair History of tubal ligation Hx of radioactive iodine thyroid ablation History of section Family History Father Alive and well Mother Alive and well Breast cancer Maternal Grandmother Ovarian cancer Paternal Aunt Breast cancer Paternal Grandmother Schizophrenia Mental health disorder Social History (Updated 01/26/23 @ 09:53 by Elysia Mak MD) Housing: House Alcohol intake: current Alcohol intake frequency: a few times a month Comment: once a week 1-2 glasses Patient Tobacco Use Status: Never used Tobacco e-Cigarette/Vaping Use: Never Used Second Hand Smoke Exposure: No Current occupational status: employed Cognitive needs: No Hearing needs: No Vision needs: No Questionnaire PHQ-9 Over the last 2 weeks, how often have you been bothered by any of the following problems? 1. Little interest or pleasure in doing things: not at all 2. Feeling down, depressed, or hopeless: not at all 3. Trouble falling or staying asleep, or sleeping too much: not at all 4. Feeling tired or having little energy: not at all 5. Poor appetite or overeating: not at all 6. Feeling bad about yourself - or that you are a failure or have let yourself or your family down: not at all 7. Trouble concentrating on things, such as reading the newspaper or watching television: not at all 8. Moving or speaking so slowly that other people could have noticed. Or the opposite - being so fidgety or restless that you have been moving around a lot more than usual: not at all 9. Thoughts that you would be better off or of hurting yourself in some way: not at all Total score: 0 Depression Screening Interpretation: Negative Depression Screening Done: Yes Source: Developed by Drs. Riley Torres, Yomaira Nieto, Cristi Viera and colleagues, with an educational michael from [employer]. Thrive Questionnaire Date Thrive assessed: 07/05/22 AUDIT C Alcohol Use Questionnaire (AUDIT-C) 1. How often do you have a drink containing alcohol?: 2-3 times a week 2. How many drinks containing alcohol do you have on a typical day when you are drinking?: 1 or 2 3. How often do you have six or more drinks on one occasion?: Never Total Score: 3 KRISTEN-7 AMB Questionnaire KRISTEN-7 Date KRISTEN - 7 assessed: 01/26/23 Feeling nervous, anxious, or on edge: 0 = Not at all Not being able to stop or control worryin = Not at all Worrying too much about different things: 0 = Not at all Trouble relaxin = Not at all Being so restless that it is hard to sit still: 0 = Not at all Becoming easily annoyed or irritable: 0 = Not at all Feeling afraid as if something awful might happen: 0 = Not at all Total KRISTEN-7 score (0-4 normal; 5-9 mild; 10-14 moderate; 15-21 severe): 0 Source: Developed by Drs. Riley Torres, Yomaira Nieto, Cristi Viera and colleagues, with an educational michael from [employer]. Review of Systems Const Denies poor appetite and Denies weakness Eyes Denies no additional complaints ENT Reports Normal hearing present, Denies dizziness, Denies nasal congestion, Denies tinnitus and Denies sore throat Card Denies chest pain, Denies syncope, Denies rapid heart rate and Denies dyspnea Resp Denies cough and Denies dyspnea GI Denies change in stool character, Reports constipation, Denies diarrhea, Denies nausea and Denies vomiting Denies urinary frequency, Denies difficulty voiding and Denies dysuria Neuro Reports Normal hearing present, Denies confusion, Denies dizziness, Denies syncope and Denies weakness Psych Denies confusion Physical exam (Primary Care) Vital Signs: Last Vital Signs Pulse 77 01/26/23 09:35 BP 110/66 01/26/23 09:35 Pulse Ox 99 01/26/23 09:35 Oxygen Delivery Method Room Air 01/26/23 09:35 BMI result Body Mass Index 25.4 Tobacco/Smoking Status: Tobacco use Status Tobacco use date assessed 01/26/23 01/26/23 09:36 Patient Tobacco Use Status Never used Tobacco 01/26/23 09:35 e-Cigarette/Vaping Use Never Used 01/26/23 09:35 PHQ-9: PHQ-9 Score PHQ-9: Total score 0 01/26/23 09:42 Depression Screening Interpretation: Negative Thrive Assessment: Date of Thrive Assessment Date Thrive assessed 07/05/22 01/26/23 09:35 Const General: No confusion Orientation/consciousness: No confusion HENMT Head: Yes normocephalic Ears: external ears normal and TM's normal bilaterally Face and sinus: Yes normal facial exam Mouth: moist mucous membranes Throat: Yes tonsils normal Eyes Conjunctivae: conjunctivae normal Pupils: Equal, round and reactive pupils present and Pupil accommodation reflex normal Direct Ophthalmoscopy: normal light reflex Neck Neck: No lymphadenopathy Thyroid: Thyroid normal Chest Chest palpation & inspection: normal inspection of the chest Resp Effort & Inspection: normal respiratory effort and no audible wheezes Auscultation: clear to auscultation bilaterally, no crackles, no wheezes and lung sounds not diminished Cardio Rate: regular rate Rhythm: regular rhythm Peripheral pulses: radial pulses present and dorsalis pedis present GI Palpation (GI): no masses Auscultation: normal bowel sounds and normoactive bowel sounds Rectal Exam - Female: deferred Skin General skin exam: no rashes or lesions noted Rashes: no rashes Full body images: 2 1. 2 mm polypoid mass noted - skin tag reassurance Neuro General: No confusion Cranial nerves: Yes Equal, round and reactive pupils present and Yes Normal hearing present Cognition (Neuro): normal cognition Gait exam (Neuro): Normal gait present Motor exam (neuro): 5/5 motor strength present throughout Deep tendon reflexes (DTR's): Right brachioradialis reflex intensity grade: 2+, Left brachioradialis reflex intensity grade: 2+, Right patellar reflex intensity grade: 2+ and Left patellar reflex intensity grade: 2+ Extrem General: No edema Assessment and Plan Assessment & Plan (1) Annual physical exam: Code(s): Z00.00 - Encounter for general adult medical examination without abnormal findings (2) Diabetes mellitus type 1: Comment: on losartan to protect kidneys Code(s): E10.9 - Type 1 diabetes mellitus without complications Qualifiers: Diabetes mellitus complication status: without complication Qualified Code(s): E10.9 - Type 1 diabetes mellitus without complications Plan: Decrease the amount of carbohydrate intake, pasta, bread, rice and potatoes are all sugar and that is aside from all the sweet stuff, remember that fruits are good but they are Sweet also. Hemoglobin A1c goal of less than 6.5 patient on the pump at goal (3) Hypothyroid: Comment: Hyperthyroidism status post iodine treatments hypothyroid Dr. Taylor March 2006 Code(s): E03.9 - Hypothyroidism, unspecified Qualifiers: Hypothyroidism type: acquired Qualified Code(s): E03.9 - Hypothyroidism, unspecified Plan: Continue with thyroid medication member 2022 last blood work (4) Colon polyp: Comment: December [address] large sessile serrated polyp Dr[address] Mcnulty Code(s): K63.5 - Polyp of colon Plan: Patient was advised to repeat colonoscopy in 6 months (5) Hair loss: Code(s): L65.9 - Nonscarring hair loss, unspecified Plan: Dermatology referral. Advised biotin as a supplement (6) Skin tag: Comment: Left thigh 2 mm January 2023 Code(s): L91.8 - Other hypertrophic disorders of the skin Plan: Reassurance Orders: Referrals 2 Dermatology Referral L65.9 - Nonscarring hair loss, unspecified Coding Level of Care Code Est Pt Prev Care 40-64y(05180) Diagnoses Annual physical exam Z00.00 Type 1 diabetes mellitus without complication E10.9 Diabetes mellitus complication status: without complication Acquired hypothyroidism E03.9 Hypothyroidism type: acquired Colon polyp K63.5 Hair loss L65.9 Skin tag L91.8
== END 2023-01-26 10:13 | disposition home or self-care (01) ==
PROVIDERS: Visit Provider Internal Medicine
DX: Z00.00 Encounter for general adult medical examination without abnormal findings (principal); E10.9 Type 1 diabetes mellitus without complications; E03.9 Hypothyroidism, unspecified; K63.5 Polyp of colon; L65.9 Nonscarring hair loss, unspecified; L91.8 Other hypertrophic disorders of the skin
CPT/HCPCS: 99396

== ENCOUNTER 2023-06-15 13:18 | Outpatient (REF) | payer OTHER, SELFPAY ==
[2023-06-15 18:26] LABS: CT PCR NOT DETECTED (Not Detect.); NG PCR NOT DETECTED (Not Detect.)
[2023-06-16 10:59] LABS: BV Int Neg Control Negative (Negative); BV Int Pos Control Positive (Positive)
[2023-06-23 02:24] LABS: HPV mRNA E6/E7 Not Detected (Not Detected)
== END 2023-06-15 13:19 | disposition home or self-care (01) ==
LOC: HO.LNP 13:18
PROVIDERS: PCP Internal Medicine; Visit Provider Advanced Practice Midwife
DX: Z01.419 Encounter for gynecological examination (general) (routine) without abnormal findings (principal); N93.9 Abnormal uterine and vaginal bleeding, unspecified
CPT/HCPCS: 0353U; 87480; 87510; 87624; 87660; 88142

== ENCOUNTER 2023-06-15 13:18 | Outpatient (AMB) | payer OTHER, SELFPAY ==
[2023-06-15 13:33] VITALS: BP 92/58; BMI 27.1
--- NOTE | 2023-06-15 13:33 | MHC.OFFVIS ---
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 Laser Cutter Required: No Information Interpreted: non-clinical & clinical Failure Analysis Technician: Failure Analysis Technician Present (Domenica) Allergies tree nut [TREE NUT] Allergy (Severe, Verified 06/15/23 13:39) ANAPHYLAXIS lisinopril Allergy (Unknown, Verified 06/15/23 13:39) cough Is last menstrual period known: Yes Last menstrual period: 06/15/23 Post menopausal: No HPI Comments Details: She is a premenopausal woman presenting for new patient annual examination. Doing well with concerns: Regular monthly menses, spaces 26-35d usually, now heavier, a week of spotting before and after, severe pain and swelling of right breast lasting for 10 days, over the last 5-6mos., somewhat better during her menses. No injuries, biopsies, prior surgery which. History tubal ligation. She tries to eat healthy and stays active with exercise. Currently is sexually active. She denies vaginal itching and irritation. Denies family history of ovarian or colon cancer. FH breast cancer-mom. Colonoscopy last fall, has follow up polypectomy in July due to partial removal. Last pap smear 2015, negative. HPV in the past. Mammogram: 2022. [facility] Medical History Breast cancer screening by mammogram Hypercholesterolemia GERD (gastroesophageal reflux disease) Leukopenia Diabetes mellitus type 1 Hypothyroid Surgical History H/O ventral hernia repair History of tubal ligation Hx of radioactive iodine thyroid ablation History of section Family History Father Alive and well Mother Alive and well Breast cancer Maternal Grandmother Ovarian cancer Paternal Aunt Breast cancer Paternal Grandmother Schizophrenia Mental health disorder Social History Housing: House Alcohol intake: current Alcohol intake frequency: a few times a month Comment: once a week 1-2 glasses Patient Tobacco Use Status: Never used Tobacco e-Cigarette/Vaping Use: Never Used Second Hand Smoke Exposure: No Current occupational status: employed Cognitive needs: No Hearing needs: No Vision needs: No Female Reproductive History Menstrual Age of Menarche: 15 Duration of menses: 6-7 days Date of last menstrual period: 06/15/23 control method: permanent sterilization Total pregnancies: 3 Full term: 2 Number of Living Children: 2 Ab spontaneous: 1 Date of last pap smear: 07/09/15 (negative) History of abnormal pap smear: Yes (2007 2006 CHAZ 1, 2006 2005 ASCUS) Date of Mammogram: 02/10/22 Review of Systems Const All systems reviewed & are unremarkable except as noted in HPI and below Reports as per HPI Eyes Reports no additional complaints ENT Reports no additional complaints Card Reports no additional complaints Resp Reports no additional complaints GI Reports as per HPI and Reports no additional complaints Reports as per HPI Musc Reports no additional complaints Skin/Breast Reports as per HPI Neuro Reports no additional complaints Psych Reports no additional complaints Endo Reports no additional complaints Calvin/Lymph Reports no additional complaints Aller/Immun Reports no additional complaints Physical Exam Vital Signs: Last Vital Signs BP 92/58 L 06/15/23 13:33 BMI result Body Mass Index 27.1 Const General: cooperative, healthy appearing, no acute distress, well developed and alert Orientation/consciousness: patient oriented x3 HEENT Head: Yes normal to inspection Eyes General: appearance normal, both eyes and all related structures Neck Neck: Yes normal visual inspection Thyroid: Thyroid normal Chest Other: Right breast mass cystic consistency at 10:00 o'clock, tenderness Chest palpation & inspection: normal inspection of the chest and other (no puckering, dimpling, peau de orange, retraction, discharge, masses) Breast/axilla inspection: normal inspection of the breasts Breast/axilla palpation: normal palpation of the breasts (Left breast normal, right breast mass fullness upper right quadrant 10:00 ) Resp Effort & Inspection: normal respiratory effort GI Inspection: Yes normal to inspection Palpation (GI): Soft to palpation Rectal Exam - Female: deferred General: Yes bladder normal to palpation External Female Exam: normal external appearance and normal appearance of the urethra Speculum Exam - Vagina: normal appearance of the vagina, normal palpation, normal vaginal discharge and vaginal bleeding Speculum Exam - Cervix: normal appearance of the cervix and normal palpation Bimanual exam- vagina & uterus: normal bimanual exam, normal palpation, uterine size normal, bladder normal to palpation, normal palpation and non-tender Bimanual Exam- Adnexa, other: no masses OB/external & speculum: vaginal bleeding Skin General skin exam: no rashes or lesions noted Rashes: no rashes Neuro General: patient oriented x3 Cognition (Neuro): normal cognition Extrem General: Yes normal to inspection Psych Attitude: cooperative Thought process: Normal thought process present Assessment & Plan Assessment & Plan (1) Encounter for well woman exam with routine gynecological exam: Code(s): Z01.419 - Encounter for gynecological examination (general) (routine) without abnormal findings Category: Medical (2) Abnormal uterine bleeding (AUB): Code(s): N93.9 - Abnormal uterine and vaginal bleeding, unspecified Category: Medical (3) Breast mass, right: Code(s): N63.10 - Unspecified lump in the right breast, unspecified quadrant Category: Medical Qualifiers: Breast mass location: upper outer quadrant Qualified Code(s): N63.11 - Unspecified lump in the right breast, upper outer quadrant (4) Mastalgia: Code(s): N64.4 - Mastodynia Category: Medical Plan Discussed: Current recommendations for pap smears per ASCCP guidelines. Breast awareness and periodic breast exams. Maintain a healthy lifestyle including a well balanced diet and routine exercise. Workup for AUB to include pelvic ultrasound, cervical cultures, endometrial biopsy-counseled regarding biopsy procedure and pre biopsy planning to eat drink and have ibuprofen 1 hour before procedure. Last TSH and CBC December 2022 were normal range. Return to the office after ultrasound results to discuss plan of care. Discussed Mirena IUD is role in management of AUB, she has not interested in the IUD and prefer pills. Mammogram yearly. Workup for breast mass to include diagnostic mammogram and right breast ultrasound, pending results may need a breast biopsy in consult with the breast surgeon. Patient verbalizes understanding and agrees to the plan of care. She was given opportunity to ask questions and all questions were answered to the best of my ability. 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 This note is constructed using voice recognition software. While every effort has been made to ensure accuracy, supervisor trust accounts errors may have been included. Orders: Orders US pelvic and transvaginal Today N93.9 - Abnormal uterine and vaginal bleeding, unspecified CT NG by PCR Today N93.9 - Abnormal uterine and vaginal bleeding, unspecified US breast RT complete Today N63.10 - Unspecified lump in the right breast, unspecified quadrant, N64.4 - Mastodynia MM tomosynthesis diagnostic BI Today N63.10 - Unspecified lump in the right breast, unspecified quadrant, N64.4 - Mastodynia, Z12.31 - Encounter for screening mammogram for malignant neoplasm of breast Bacterial Vaginosis Panel Today N93.9 - Abnormal uterine and vaginal bleeding, unspecified Pap Smear Today N93.9 - Abnormal uterine and vaginal bleeding, unspecified Coding Level of Care Code New Pt Prev Care 40-64y(03268) Diagnoses Encounter for well woman exam with routine gynecological exam Z01.419 Abnormal uterine bleeding (AUB) N93.9 Mass of upper outer quadrant of right breast N63.11 Breast mass location: upper outer quadrant Mastalgia N64.4
== END 2023-06-15 14:23 | disposition home or self-care (01) ==
PROVIDERS: PCP Internal Medicine; Visit Provider Advanced Practice Midwife
DX: Z01.419 Encounter for gynecological examination (general) (routine) without abnormal findings (principal); N93.9 Abnormal uterine and vaginal bleeding, unspecified; N63.11 Unspecified lump in the right breast, upper outer quadrant; N64.4 Mastodynia
CPT/HCPCS: 99386

== ENCOUNTER 2023-06-20 14:04 | Outpatient (REF) | payer OTHER, SELFPAY ==
--- NOTE | ~2023-06-20 | US_ITS ---
EXAMINATION: US PELVIS CLINICAL INFORMATION: Abnormal uterine bleeding, last menstrual period June 17, 2023. Patient declined transvaginal ultrasound images. COMPARISON: None available. TECHNIQUE: Transabdominal ultrasound images of the pelvis were obtained. Patient declined transvaginal ultrasound images. Transvaginal ultrasound images recommended for better visualization. FINDINGS: Uterus: The uterus is anteverted and measures 9.5 x 4.0 x 5.3 cm. The double wall endometrial thickness is 4 mm. No discrete fibroids appreciated. Right ovary measures 2.7 x 1.4 x 3.1 cm, volume 5.9 mL and is unremarkable. Left ovary measures 3.4 x 1.5 x 1.9 cm, volume 5.0 mL and is unremarkable. No significant free fluid. US/US pelvic complete IMPRESSION: Endometrial thickness is 4 mm. Patient declined transvaginal ultrasound images. Transvaginal ultrasound images could be considered for better visualization based on the clinical assessment.
== END 2023-06-20 14:05 | disposition home or self-care (01) ==
LOC: HO.US 14:04
PROVIDERS: PCP Internal Medicine; Visit Provider Advanced Practice Midwife
DX: N93.9 Abnormal uterine and vaginal bleeding, unspecified (principal)
CPT/HCPCS: 76856

== ENCOUNTER 2023-06-23 09:56 | Outpatient (REF) | payer OTHER, SELFPAY ==
--- NOTE | ~2023-06-23 | MM_ITS ---
EXAMINATION: MM DIAGNOSTIC DIGITAL BREAST TOMOSYNTHESIS, BILATERAL US BREAST LIMITED, RIGHT MAMMOGRAPHY: CLINICAL INFORMATION: 48-year-old female complaining of severe breast pain right breast spanning 6:00 to 10:00 and in the axilla. No palpable abnormality. Patient had difficulty tolerating compression of the right breast. COMPARISON: Mammography: 02/10/2022, 02/08/2021, 02/13/2018, 06/24/2017. TECHNIQUE: Digital breast tomosynthesis is performed in both the craniocaudal and mediolateral oblique views along with computer-aided detection (CAD). Synthesized 2D images are generated from the tomosynthesis. FINDINGS: The breasts are extremely dense, which lowers the sensitivity of mammography (ACR BI-RADS breast composition Category d). The right breast is slightly larger than the left, a finding which has been consistent on multiple prior examinations. There are no suspicious masses, suspicious grouped calcifications, or areas of architectural distortion in either breast which can be distinguished from the extremely dense breast parenchyma. The parenchymal pattern is stable from prior exams. No axillary or skin abnormalities. No mammographic abnormality in the lateral right breast is detected in the region of breast pain. We will evaluate this area with ultrasound. ULTRASOUND: CLINICAL INFORMATION: Severe right breast pain spanning 6:00 to 10:00 and into the right axilla. COMPARISON: None TECHNIQUE: Targeted sonographic evaluation was performed using a high frequency linear transducer. The right lateral breast was examined. Selected archived documentation. FINDINGS: RIGHT BREAST: There is extremely dense fibroglandular tissue. No suspicious mass is seen. There is no pathologic acoustic shadowing. There is no axillary adenopathy. MM/MM tomosynthesis diagnostic BI IMPRESSION: 1. No findings suspicious for malignancy in either breast. 2. No findings sonographically or mammographically to explain right breast pain laterally. Recommend clinical management. 3. Consider screening ultrasound as a screening adjunct in this patient due to her extremely dense breast tissue. OVERALL ASSESSMENT: Mammography: BI-RADS 1 - Negative Ultrasound: BI-RADS 1 - Negative RECOMMENDATION: 1. Patient should be managed based on the clinical impression. 2. Otherwise, routine annual screening mammography. This patient's information was entered into a reminder system with a target due date for their next mammogram.
== END 2023-06-23 09:57 | disposition home or self-care (01) ==
LOC: HO.MAMMO 09:56
PROVIDERS: PCP Internal Medicine; Visit Provider Advanced Practice Midwife
DX: N64.4 Mastodynia (principal); N63.15 Unspecified lump in the right breast, overlapping quadrants
CPT/HCPCS: 76642; 77062; 77066

== ENCOUNTER → 2023-06-23 09:58 | Outpatient (BNV) | payer OTHER, SELFPAY | PROVIDERS: PCP Internal Medicine; Visit Provider Radiology Diagnostic Radiology | DX: N64.4 Mastodynia (principal); N63.15 Unspecified lump in the right breast, overlapping quadrants | CPT/HCPCS: 76642; 77062; 77066 ==

== ENCOUNTER 2023-07-28 09:19 | Day surgery (SDC) | payer OTHER, SELFPAY ==
--- NOTE | 2023-07-26 11:41 | HO.ANESPROP2 ---
Documented by User: Flaca Campos NP 07/26/23 11:43 HPI - Anesthesia Eval Consult details Narrative: 48yo F for Colonoscopy PMFSH Active Problems Active Problems: All Active Problems Mastalgia (Acute) Breast mass, right (Acute) Abnormal uterine bleeding (AUB) (Acute) Encounter for well woman exam with routine gynecological exam (Acute) Skin tag (Acute) Hair loss (Acute) Colon polyp (Acute) Positive colorectal cancer screening using Cologuard test (Acute) Colon cancer screening (Acute) COVID-19 virus infection (Acute) Headache (Acute) Incarcerated ventral hernia (Acute) Cervical cancer screening (Acute) Generalized anxiety disorder (Acute) Onychomycosis (Acute) Annual physical exam (Acute) Hypercholesterolemia (Acute) Diabetes mellitus type 1 (Acute) Hypothyroid (Acute) Past Medical History Medical History Breast cancer screening by mammogram Hypercholesterolemia GERD (gastroesophageal reflux disease) Leukopenia Diabetes mellitus type 1 Hypothyroid Family History Family History Father Alive and well Mother Alive and well Breast cancer Maternal Grandmother Ovarian cancer Paternal Aunt Breast cancer Paternal Grandmother Schizophrenia Mental health disorder Family history of problems with anesthesia: No Surgical History Surgical History H/O ventral hernia repair History of tubal ligation Hx of radioactive iodine thyroid ablation History of section History of Problems with Anesthesia: No Social History Social History Housing: House Alcohol intake: current Alcohol intake frequency: a few times a month Comment: once a week 1-2 glasses Patient Tobacco Use Status: Never used Tobacco e-Cigarette/Vaping Use: Never Used Second Hand Smoke Exposure: No Advance Directives: No Advance Directives Information Provided: Yes Current occupational status: employed Cognitive needs: No Hearing needs: No Vision needs: No Meds Allergies Allergy/AdvReac Type Severity Reaction Status Date / Time tree nut [TREE NUT] Allergy Severe ANAPHYLAXIS Verified 06/15/23 13:39 lisinopril Allergy Unknown cough Verified 06/15/23 13:39 Home Medications ?Medication ?Instructions ?Recorded ?Confirmed ?Last Taken ?Type cholecalciferol (vitamin D3) 50 50 mcg PO DAILY 12/23/20 01/26/23 Unknown History mcg (2,000 unit) capsule Assessment and Plan Assessment Anesthesia Assessment: Chart Reviewed Final Anesthetic Review Family History of Problems with Anesthesia: No History of Problems with Anesthesia: No Documented by User: Chery Salazar MD 07/28/23 11:26 PMFSH Past Medical History Medical History Breast cancer screening by mammogram Hypercholesterolemia GERD (gastroesophageal reflux disease) Leukopenia Diabetes mellitus type 1 Hypothyroid Family History Family History Father Alive and well Mother Alive and well Breast cancer Maternal Grandmother Ovarian cancer Paternal Aunt Breast cancer Paternal Grandmother Schizophrenia Mental health disorder Surgical History Surgical History H/O ventral hernia repair History of tubal ligation Hx of radioactive iodine thyroid ablation History of section Social History Social History Housing: House Alcohol intake: current Alcohol intake frequency: a few times a month Comment: once a week 1-2 glasses Patient Tobacco Use Status: Never used Tobacco e-Cigarette/Vaping Use: Never Used Second Hand Smoke Exposure: No Advance Directives: No Advance Directives Information Provided: Yes Current occupational status: employed Cognitive needs: No Hearing needs: No Vision needs: No Meds Allergies Allergy/AdvReac Type Severity Reaction Status Date / Time tree nut [TREE NUT] Allergy Severe ANAPHYLAXIS Verified 06/15/23 13:39 lisinopril Allergy Unknown cough Verified 06/15/23 13:39 Home Medications ?Medication ?Instructions ?Recorded ?Confirmed ?Last Taken ?Type cholecalciferol (vitamin D3) 50 50 mcg PO DAILY 12/23/20 01/26/23 Unknown History mcg (2,000 unit) capsule Exam Airway Mallampati Class: II (implant bottom) TM Dist: >3cm Neck ROM: Full Heart: rrr Lungs: cta Assessment and Plan Assessment Anesthesia Assessment: Anesthesia Plan Discussed Final Anesthetic Review NPO: Yes ASA Class: II Final Preanesthetic Review: No Changes in Pt Med Stat, Meds/Allgs Chart Reviewed and Consent Obtained/Reviewed Patient Risk: Low Procedure Risk: Low Anesthetic Plan Anesthetic Plan: MAC: Disposition: Standard PACU
--- NOTE | 2023-07-28 10:04 | MHC.SHP ---
Pre-Procedural Eval Section A - 24 Hr Update-Section A only Date of Service: 07/28/23 The patient is an INPATIENT: No The patient has been examined within 24 hours of the surgical procedure. The History & Physical has been completed within 30 days and I have reviewed it.: No Section B - Complete if H&P > 30 days Chief Complaint: Surveillance of colon polyps Relevant Family History (Specify if Yes): No Relevant Social History: None Present Medications: see Short Stay Collaborative assessment Medical History: Significant History (Hypercholesterolemia GERD (gastroesophageal reflux disease) Leukopenia Diabetes mellitus type 1 Hypothyroid) History of Previous Operations: Relevant previous surgery/procedure and date(s) (H/O ventral hernia repair History of section History of tubal ligation Hx of radioactive iodine thyroid ablation) Allergies: Allergies Allergy/AdvReac Type Severity Reaction Status Date / Time tree nut [TREE NUT] Allergy Severe ANAPHYLAXIS Verified 06/15/23 13:39 lisinopril Allergy Unknown cough Verified 06/15/23 13:39 Review of Systems Sugical H&P ROS: Negative: Constitution, Cardiovascular, Respiratory and Gastrointestinal Exam Surgical H&P Exam: Normal: Heart, Normal: Lungs, Normal: Extremities and Normal: Abdomen Plan Diagnosis/Plan: Unchanged I have reviewed the history and physical and performed a pertinent physical examination on my patient. No changes have occurred unless specified. Time Spent With Patient Time: Total time managing care of this patient today ____ minutes.
[2023-07-28 10:10] VITALS: BMI 26.9
[2023-07-28 10:18] LABS: Glucose, Whole Blood 56 mg/dL (60-115)
[2023-07-28 10:33] VITALS: BP 109/58; PULSE 59; RESP 16; TEMP 37.1; O2SAT 100
[2023-07-28] MEDS: Lactated Ringers 1,000 ML 100 ML IVCONT (10:46)
[2023-07-28 12:27] VITALS: BP 95/41; PULSE 53; RESP 16; TEMP 36.1; O2SAT 100
--- NOTE | 2023-07-28 12:31 | HO.OPN-COLON ---
Colonoscopy Operative Note Operative Note Date of Service: 07/28/23 Narrative: COLONOSCOPY TILL CECUM WITH BIOPSIES, SNARE POLYPECTOMY, SUBMUCOSAL INJECTION AND HEMOCLIP PLACEMENT Pre-op diagnosis: SURVEILLANCE FOR COLON POLYPS. Post-op diagnosis:? Colon polyps, hemorrhoids Endoscopist:? Raf Mcnulty MD Anesthesia:?MAC Consent: Indications for the procedure and potential complications of bleeding, perforation, reaction to medications and missed diagnosis were discussed with the patient and informed consent was obtained. Instrument: Olympus CF H 190 L variable stiffness adult colonoscope Monitoring: Vital signs and clinical assessment, intermittent blood pressure monitoring, continuous EKG monitoring, Pulse oximetry and Carbon Dioxide monitoring were done throughout the procedure. Please see anesthesia flowsheet. Colon withdrawl time was 30 minutes. Procedure: The patient was placed in the left lateral decubitis position and pre-procedure medications were administered. After a digital rectal examination of the ano-rectum, the video colonoscope was inserted into the rectum and advanced through the colon to the cecum. The colonoscope was slowly withdrawn in a retrograde panoramic fashion and the colon mucosa was carefully examined including a retroflexed view of the rectum. Findings and interventions are described below. Procedure Difficulty: without difficulty Findings: Terminal Ileum: Not evaluated Cecum: Two 8-10 mm sessile polyps - adjacent to the appendical orifice. Polyps were removed with a hot snare. Polypectomy site was visualized and no recurrent polyp was seen. Focal area of edema, erythema and aphthoid ulcers in the cecum/proximal AC - biopsies obtained. Ascending Colon: A 10-12 mm flat polyp in the proximal AC. Polyp was raised with 4 cc of [place] and removed with a stiff, hot snare. Polypectomy site was closed with 1 hemoclip. Transverse Colon: Normal Descending Colon: Normal Sigmoid Colon: Normal Rectum: Normal Ano-rectum: Small internal hemorrhoids Colon preparation: Good after some irrigation. [place] Bowel Preparation Scale Right colon; 2 Transverse colon: 2 Left colon; 2 (0 = Unprepared colon segment with mucosa not seen due to solid stool that cannot be cleared. 1 = Portion of mucosa of the colon segment seen, but other areas of the colon segment not well seen due to staining, residual stool and/or opaque liquid. 2 = Minor amount of residual staining, small fragments of stool and/or opaque liquid, but mucosa of colon segment seen well. 3 = Entire mucosa of colon segment seen well with no residual staining, small fragments of stool or opaque liquid) Impression and Post Procedure Diagnosis: Colonoscopy Findings: Three medium sized polyps were removed Focal area of edema, erythema and aphthoid ulcers in the cecum/proximal AC - likely related to NSAID use Small hemorrhoids on retroflexed exam. Plan: I will send a letter with the biopsy results. Repeat Colonoscopy in 3 years if polyps are adenomatous and due to a history of a large adenomatous polyp. Above findings were reviewed with the patient and relevant handouts were given and the discharge area.
[2023-07-28 12:44] VITALS: BP 104/52; PULSE 48; RESP 18; TEMP 36.2; O2SAT 99
== END 2023-07-28 13:15 | disposition home or self-care (01) ==
PROVIDERS: PCP Internal Medicine; Visit Provider Internal Medicine Gastroenterology
PROC: 0DJD8ZZ Inspection of Lower Intestinal Tract, Via Natural or Artificial Opening Endoscopic (ICD-10-PCS; CPT 45378; principal; 2023-07-28 11:10)
DX: Z12.11 Encounter for screening for malignant neoplasm of colon (principal); Z86.010 Personal history of colon polyps; K63.5 Polyp of colon; K52.9 Noninfective gastroenteritis and colitis, unspecified; K57.30 Diverticulosis of large intestine without perforation or abscess without bleeding; K64.8 Other hemorrhoids; E10.8 Type 1 diabetes mellitus with unspecified complications; E03.9 Hypothyroidism, unspecified; K21.9 Gastro-esophageal reflux disease without esophagitis; Z79.899 Other long term (current) drug therapy; Z88.8 Allergy status to other drugs, medicaments and biological substances; Z98.890 Other specified postprocedural states
CPT/HCPCS: 45385; 45380; 45381; 82947; 88305; J2704

== ENCOUNTER → 2023-07-28 09:19 | Outpatient (BNV) | payer OTHER, SELFPAY | PROVIDERS: PCP Internal Medicine; Visit Provider Internal Medicine Gastroenterology | DX: Z12.11 Encounter for screening for malignant neoplasm of colon (principal); Z86.010 Personal history of colon polyps; K63.5 Polyp of colon; K64.8 Other hemorrhoids; K52.9 Noninfective gastroenteritis and colitis, unspecified | CPT/HCPCS: 45380; 45381; 45385 ==

== ENCOUNTER 2023-08-03 11:22 | Outpatient (AMB) | payer OTHER, SELFPAY ==
--- NOTE | 2023-08-03 11:28 | MHC.OFFVIS ---
Vital Signs 08/03/23 11:34 Height 5 ft 4 in Weight 158 lb 9 oz BMI 27.2 BP 124/62 Blood Pressure Location Lt radial Position Sitting Intake Visit Reasons: Ultrasound Follow up /EMB? Intake Note: Having a lot of pain on her right breast before her period and during. Cash Control Specialist Required: No Information Interpreted: non-clinical & clinical Water Resources Project Manager: Water Resources Project Manager Present (Aidyn) Allergies tree nut [TREE NUT] Allergy (Severe, Verified 08/07/23 13:14) ANAPHYLAXIS lisinopril Allergy (Unknown, Verified 08/07/23 13:14) cough Is last menstrual period known: Yes Last menstrual period: 07/15/23 Post menopausal: No Patient : No HPI Comments Details: Patient is here today for a follow up breast evaluation for severe right breast pain between 6 and 10:00 o'clock extending to the axilla region, and ultrasound follow up due to history of AUB. The bleeding lasts up to 3 weeks at a time, with spotting 1 week before and after her cycle. She reports that her bleeding is always like that since she started her cycle at age 15, unless she was using control. Previous office note had remarked that her bleeding had increased. She prefers to use only control low dose as she wants to decrease her risk for yeast infections. Had used Seasonique for many years. She has not interested in the Mirena IUD. History of diabetes for 45 years. [facility] Medical History Breast cancer screening by mammogram Hypercholesterolemia GERD (gastroesophageal reflux disease) Leukopenia Diabetes mellitus type 1 Hypothyroid Surgical History H/O ventral hernia repair History of tubal ligation Hx of radioactive iodine thyroid ablation History of section Family History Father Alive and well Mother Alive and well Breast cancer Maternal Grandmother Ovarian cancer Paternal Aunt Breast cancer Paternal Grandmother Schizophrenia Mental health disorder Social History Housing: House Alcohol intake: current Alcohol intake frequency: a few times a month Comment: once a week 1-2 glasses Patient Tobacco Use Status: Never used Tobacco e-Cigarette/Vaping Use: Never Used Second Hand Smoke Exposure: No Current occupational status: employed Cognitive needs: No Hearing needs: No Vision needs: Yes Female Reproductive History Menstrual Age of Menarche: 15 Date of last menstrual period: 07/15/23 Review of Systems Const All systems reviewed & are unremarkable except as noted in HPI and below Endo Reports no additional complaints Physical Exam Vital Signs: Last Vital Signs BP 124/62 08/03/23 11:34 BMI result Body Mass Index 27.2 Const General: cooperative, healthy appearing and no acute distress Chest Other: Declines breast exam Psych Appearance: well kempt Attitude: cooperative Thought process: Normal thought process present Results Reviewed Results Reviewed: [address] [address] Ultrasound Report Signed Patient: Elsa Leblanc MR#: [id number] : 1975 Acct:[id number] Age/Sex: 48 / F ADM Date: 06/20/23 Loc: HO.US Attending Dr: Radha Archibald CNM Ordering Physician: Radha Archibald CNM Date of Service: 06/20/23 Procedure(s): US pelvic complete Accession Number(s): [id number] cc: Radha Archibald CNM; Elysia Mak MD~ EXAMINATION: US PELVIS CLINICAL INFORMATION: Abnormal uterine bleeding, last menstrual period June 17, 2023. Patient declined transvaginal ultrasound images. COMPARISON: None available. TECHNIQUE: Transabdominal ultrasound images of the pelvis were obtained. Patient declined transvaginal ultrasound images. Transvaginal ultrasound images recommended for better visualization. FINDINGS: Uterus: The uterus is anteverted and measures 9.5 x 4.0 x 5.3 cm. The double wall endometrial thickness is 4 mm. No discrete fibroids appreciated. Right ovary measures 2.7 x 1.4 x 3.1 cm, volume 5.9 mL and is unremarkable. Left ovary measures 3.4 x 1.5 x 1.9 cm, volume 5.0 mL and is unremarkable. No significant free fluid. US/US pelvic complete IMPRESSION: Endometrial thickness is 4 mm. Patient declined transvaginal ultrasound images. Transvaginal ultrasound images could be considered for better visualization based on the clinical assessment. Dictated By: Yudi Gann MD Signed By: <Electronically signed by Yudi Gann MD in OV> 06/27/23 1316 DD/ 1412 TD/TT: Baker Operator Automatic: Assessment & Plan Assessment & Plan (1) Abnormal uterine bleeding (AUB): Code(s): N93.9 - Abnormal uterine and vaginal bleeding, unspecified Category: Medical (2) Mastalgia: Code(s): N64.4 - Mastodynia Category: Medical Plan Discussed: Pelvic and breast ultrasound, mammogram findings. AUB, her bleeding pattern is not considered normal, it is abnormal uterine bleeding, I recommend to have an endometrial biopsy to rule out any abnormal tissue from the endometrial lining that is not seen with ultrasound. She adamantly declines an endometrial biopsy, as she feels this is her normal. Breast pain, reviewed ultrasound and mammogram did not find any abnormality, she reports the breast pain is just pre menstrual and a few days into the menses. I recommend she see a breast surgeon for a consult, she declines. Additional testing and rule out before hormones can be initiated. This note is constructed using voice recognition software. While every effort has been made to ensure accuracy, software test analyst errors may have been included. Coding Level of Care Code Est Pt Level 3 (07655) Diagnoses Abnormal uterine bleeding (AUB) N93.9 Mastalgia N64.4
[2023-08-03 11:34] VITALS: BP 124/62; BMI 27.2
== END 2023-08-03 12:25 | disposition home or self-care (01) ==
PROVIDERS: PCP Internal Medicine; Visit Provider Advanced Practice Midwife
DX: N93.9 Abnormal uterine and vaginal bleeding, unspecified (principal); N64.4 Mastodynia
CPT/HCPCS: 99213

== ENCOUNTER → 2023-08-03 11:22 | Outpatient (BNVA) | payer OTHER, SELFPAY | PROVIDERS: PCP Internal Medicine; Visit Provider Advanced Practice Midwife ==

== ENCOUNTER 2023-08-07 13:03 | Outpatient (AMB) | payer BC, SELFPAY ==
[2023-08-07 13:14] VITALS: BP 114/68; PULSE 57; O2SAT 98; BMI 26.8
--- NOTE | 2023-08-07 13:14 | A.OFFPC_ITS ---
Vital Signs 08/07/23 13:14 Height 5 ft 4 in Weight 156 lb BMI 26.8 BP 114/68 Blood Pressure Location Lt brachial Position Sitting Pulse 57 Pulse Source Pulse Oximeter Pulse Oximetry (%) 98 Oxygen Delivery Method Room Air Intake Visit Reasons: 6 month f/u Allergies tree nut [TREE NUT] Allergy (Severe, Verified 08/07/23 13:14) ANAPHYLAXIS lisinopril Allergy (Unknown, Verified 08/07/23 13:14) cough Tobacco use date assessed: 08/07/23 Dental Screening Dental Screen Date: 08/07/23 Did you have a dental visit in the last 12 months?: Yes Did you have a dental problem in the last 6 months where you did not have access to dental care?: No Was dental information given to patient?: Patient has dentist HPI 6 month f/u HPI Details 48-year-old female with diabetes mellitu s type 1 hypothyroidism coming in for follow-up. Last seen in 01/25/2021 for physical exam had a colon polyp and was advised repeat colonoscopy patient just had a colonoscopy done showing some colitis. Review of the notes has seen Gynecology having endometrial thickening but has declined transvaginal ultrasound. [facility] Medical History Breast cancer screening by mammogram Hypercholesterolemia GERD (gastroesophageal reflux disease) Leukopenia Diabetes mellitus type 1 Hypothyroid Surgical History H/O ventral hernia repair History of tubal ligation Hx of radioactive iodine thyroid ablation History of section Family History Father Alive and well Mother Alive and well Breast cancer Maternal Grandmother Ovarian cancer Paternal Aunt Breast cancer Paternal Grandmother Schizophrenia Mental health disorder Social History Housing: House Alcohol intake: current Alcohol intake frequency: a few times a month Comment: once a week 1-2 glasses Patient Tobacco Use Status: Never used Tobacco e-Cigarette/Vaping Use: Never Used Second Hand Smoke Exposure: No Current occupational status: employed Cognitive needs: No Hearing needs: No Vision needs: Yes Female Reproductive History Menstrual Age of Menarche: 15 Questionnaire PHQ-9 Over the last 2 weeks, how often have you been bothered by any of the following problems? 1. Little interest or pleasure in doing things: not at all 2. Feeling down, depressed, or hopeless: not at all 3. Trouble falling or staying asleep, or sleeping too much: not at all 4. Feeling tired or having little energy: not at all 5. Poor appetite or overeating: not at all 6. Feeling bad about yourself - or that you are a failure or have let yourself or your family down: not at all 7. Trouble concentrating on things, such as reading the newspaper or watching television: not at all 8. Moving or speaking so slowly that other people could have noticed. Or the opposite - being so fidgety or restless that you have been moving around a lot more than usual: not at all 9. Thoughts that you would be better off or of hurting yourself in some way: not at all Total score: 0 Depression Screening Interpretation: Negative Depression Screening Done: Yes Source: Developed by Drs. Riley Torres, Yomaira Nieto, Cristi Viera and colleagues, with an educational michael from [employer]. Thrive Questionnaire Date Thrive assessed: 08/07/23 I am a: Patient What is your living situation today?: I have a steady place to live Within the past 12 months, did the food you bought not last and you didn't have the money to get more?: Never true Within the past 12 months, did you worry whether your food would run out before you got money to buy more?: Never true Do you have trouble paying for medicines?: No Do you have trouble getting transportation to medical appointments?: No Do you have trouble paying your heating and electricity bill?: No Do you have trouble taking care of your child, family member or friend?: No Do you have trouble with day-to-day activities such as bathing, preparing meals, shopping, managing finances, etc.?: No Are you currently unemployed and looking for a job?: No Are you interested in more education?: No Currently or been in a relationship where the following occur: No concerns reported THRIVE Score: 0 AUDIT C Alcohol Use Questionnaire (AUDIT-C) 1. How often do you have a drink containing alcohol?: 2-3 times a week 2. How many drinks containing alcohol do you have on a typical day when you are drinking?: 1 or 2 3. How often do you have six or more drinks on one occasion?: Never Total Score: 3 KRISTEN-7 AMB Questionnaire KRISTEN-7 Date KRISTEN - 7 assessed: 08/07/23 Feeling nervous, anxious, or on edge: 0 = Not at all Not being able to stop or control worryin = Not at all Worrying too much about different things: 0 = Not at all Trouble relaxin = Not at all Being so restless that it is hard to sit still: 0 = Not at all Becoming easily annoyed or irritable: 0 = Not at all Feeling afraid as if something awful might happen: 0 = Not at all Total KRISTEN-7 score (0-4 normal; 5-9 mild; 10-14 moderate; 15-21 severe): 0 Source: Developed by Drs. Riley Torres, Yomaira Nieto, Cristi Viera and colleagues, with an educational michael from [employer]. Physical exam (Primary Care) Vital Signs: Last Vital Signs Pulse 57 08/07/23 13:14 BP 114/68 08/07/23 13:14 Pulse Ox 98 08/07/23 13:14 Oxygen Delivery Method Room Air 08/07/23 13:14 BMI result Body Mass Index 26.8 Tobacco/Smoking Status: Tobacco use Status Tobacco use date assessed 08/07/23 08/07/23 13:16 Patient Tobacco Use Status Never used Tobacco 08/07/23 13:16 e-Cigarette/Vaping Use Never Used 08/07/23 13:16 PHQ-9: PHQ-9 Score PHQ-9: Total score 0 08/07/23 13:36 Depression Screening Interpretation: Negative Thrive Assessment: Date of Thrive Assessment Date Thrive assessed 08/07/23 08/07/23 13:16 Currently or been in a relationship where the following occur: No concerns reported Const General: alert; No acute distress Eyes Conjunctivae: conjunctivae normal Resp Auscultation: clear to auscultation bilaterally Cardio Rate: regular rate Rhythm: regular rhythm GI Inspection: Yes normal to inspection Extrem General: Yes normal to inspection and No edema Results AMB Hemoglobin A1c AMB Hemoglobin A1c 5.9 % Last Edit by Talita Leary CMA on 08/07/23 13 :36 Results Reviewed Results Reviewed: Laboratory Last Values Hgb A1c (Clinic) 5.9 % (4.0-6.0) 08/07/23 13:16 Assessment and Plan Assessment & Plan (1) Diabetes mellitus type 1: Comment: on losartan to protect kidneys, Dr. Larios Code(s): E10.9 - Type 1 diabetes mellitus without complications Qualifiers: Diabetes mellitus complication status: without complication Qualified Code(s): E10.9 - Type 1 diabetes mellitus without complications Plan: Decrease the amount of carbohydrate intake, pasta, bread, rice and potatoes are all sugar and that is aside from all the sweet stuff, remember that fruits are good but they are Sweet also. Patient has the insulin pump hemoglobin A1c is normal (2) Hypothyroid: Comment: Hyperthyroidism status post iodine treatments hypothyroid Dr. Taylor March Code(s): E03.9 - Hypothyroidism, unspecified Qualifiers: Hypothyroidism type: acquired Qualified Code(s): E03.9 - Hypothyroidism, unspecified Plan: Continue with thyroid medication 12/26/2022 last blood work (3) Hypercholesterolemia: Code(s): E78.00 - Pure hypercholesterolemia, unspecified Plan: Avoid fried foods, chicken skin, eggs, butter margarine, pastries and meat. Be it pork or beef they have a lot of cholesterol LDL goal of less than 100 and triglyceride of less than 150 ASCVD risk is low (4) Generalized anxiety disorder: Code(s): F41.1 - Generalized anxiety disorder Plan: Stable (5) Colon polyp: Comment: December [address] large [address]ile s[address] polyp Dr. Mcnulty 07/2023 (no symptoms) 3 year s Code(s): K63.5 - Polyp of colon Plan: Patient has had colonoscopy done and has some colitis (6) Abnormal uterine bleeding (AUB): Code(s): N93.9 - Abnormal uterine and vaginal bleeding, unspecified Plan: Patient was noted to have endometrial thickening and having a 2nd opinion in [facility] but patient feels the menstruation is not irregular Orders: Orders Complete Blood Count Auto Diff 6 Months E10.9 - Type 1 diabetes mellitus without complications Comprehensive Met. Panel 6 Months E10.9 - Type 1 diabetes mellitus without complications Thyroid Stimulating Hormone 6 Months E10.9 - Type 1 diabetes mellitus without complications Creatinine Urine 6 Months E10.9 - Type 1 diabetes mellitus without complications, E11.65 - Type 2 diabetes mellitus with hyperglycemia Microalbumin, Random (w Creat) 6 Months E10.9 - Type 1 diabetes mellitus without complications, E11.65 - Type 2 diabetes mellitus with hyperglycemia Lipid Panel 6 Months E10.9 - Type 1 diabetes mellitus without complications, E78.00 - Pure hypercholesterolemia, unspecified Vitamin D 25-OH Total 6 Months E10.9 - Type 1 diabetes mellitus without complic ations AMB Hemoglobin A1c Today Z13.9 - Encounter for screening, unspecified Hemoglobin A1c 6 Months E10.9 - Type 1 diabetes mellitus without complications Free T4 (Free Thyroxine) 6 Months E10.9 - Type 1 diabetes mellitus without complications Vitamin B12 and Folate 6 Months E10.9 - Type 1 diabetes mellitus without complications Coding Level of Care Code Est Pt Level 4 (16502) Diagnoses Type 1 diabetes mellitus without complication E10.9 Diabetes mellitus complication status: without complication Acquired hypothyroidism E03.9 Hypothyroidism type: acquired Hypercholesterolemia E78.00 Generalized anxiety disorder F41.1 Colon polyp K63.5 Abnormal uterine bleeding (AUB) N93.9
== END 2023-08-07 13:56 | disposition home or self-care (01) ==
PROVIDERS: PCP Internal Medicine; Visit Provider Internal Medicine
DX: E10.9 Type 1 diabetes mellitus without complications (principal); E03.9 Hypothyroidism, unspecified; E78.00 Pure hypercholesterolemia, unspecified; F41.1 Generalized anxiety disorder; K63.5 Polyp of colon; N93.9 Abnormal uterine and vaginal bleeding, unspecified
CPT/HCPCS: 83036; 99214

== ENCOUNTER 2024-01-15 07:08 | Outpatient (REF) | payer BC, SELFPAY ==
[2024-01-15 07:20] LABS: MANUAL DIFF FLAG NO
[2024-01-15 07:54] LABS: Basophils Absolute Auto 0.1 X10*3/uL (0.0-0.2); Basophils Percent Auto 1.3 % (0-2); Eosinophils Absolute Auto 0.3 X10*3/uL (0.0-0.4); Eosinophils Percent Auto 5.6 % (0-4); Hematocrit 44.5 % (37.0-47.0); Hemoglobin 15.5 g/dl (12.0-16.0); Imm Gran Abs Auto 0.02 X10*3/uL (0.00-0.03); Imm Gran Pct Auto 0.4 % (0.0-0.4); Lymphocytes Absolute Auto 1.4 X10*3/uL (1.2-4.9); Mean Corpuscular HGB Conc 34.8 g/dl (31.0-35.0); Mean Corpuscular Hemoglobin 32.6 pg (27.0-33.0); Mean Corpuscular Volume 93.5 fL (80.0-98.0); Mean Platelet Volume 9.7 fL (9.4-12.3); Monocytes Absolute Auto 0.5 X10*3/uL (0.1-1.2); Monocytes Percent Auto 8.5 % (2-11); Neutrophils Absolute Auto 3.2 x10*3/uL (2.0-8.3); Neutrophils Percent Auto 58.2 % (45-73); Platelet Count 225 X10*3/uL (160-400); Red Blood Count 4.76 X10*6/uL (4.20-5.50); Red Cell Distribution Width 12.6 % (11.0-16.0); White Blood Count 5.5 X10*3/uL (4.8-10.8)
[2024-01-15 08:06] LABS: Estimated Average Glucose 123 mg/dL; Hemoglobin A1C 154.3006 umol/L; Hemoglobin A1c % 5.9 % (<6.0); Total Hemoglobin (HGBA1C) 3805.2954 umol/L
[2024-01-15 08:12] LABS: Creatinine Urine 109.92 mg/dL; Microalbum/Creatinine Ratio Ur 6.3 ug/mg cr (<30)
[2024-01-15 08:16] LABS: Alanine Aminotransferase 15 U/L (0-31); Albumin Level 4.3 g/dL (3.5-5.0); Alkaline Phosphatase 49 U/L (39-117); Anion Gap 11 (12-20); Aspartate Amino Transferase 21 U/L (5-31); Bilirubin Total 0.7 mg/dL (0.0-1.0); Blood Urea Nitrogen 19 mg/dL (9-16); Calcium 9.5 mg/dL (8.4-10.2); Carbon Dioxide 25 mmol/L (22-29); Chloride 103 mmol/L (96-108); Cholesterol 174 mg/dL (<200); Estimated Glomerular Filt Rate > 60; Glucose Random 213 mg/dL (60-115); HDL Cholesterol 64 mg/dL (>40); LDL Cholesterol Calculated 101 mg/dL (<100); Potassium 4.1 mmol/L (3.3-5.1); Sodium 135 mmol/L (135-145); Triglycerides 48 mg/dL (<150)
[2024-01-15 08:44] LABS: Folate 8.3 ng/mL (> or = 4.0); Vitamin B12 312 pg/mL (200-900)
[2024-01-15 08:48] LABS: Free T4 (Free Thyroxine) 1.09 ng/dL (0.71-1.85); Thyroid Stimulating Hormone 3.51 uIU/mL (0.32-4.0); Vitamin D 25-OH Total 48.2 ng/mL (>30)
--- OUTSIDE RECORDS SUMMARY | 2024-01-17 12:37 | XMS_ITS ---
Author Name [facility] Organization Unknown History of Medication Use Medication Directions Dispensed Refills Start Date End Date Stat us amoxicillin (AMOXIL) 500 MG capsule Take 1 capsule (500 mg total) by mouth 2 (two) times a day. 09/30/2023 active spacer for MDI (Aerochamber/Breathe Rite/Ellipse) Device Use as instructed 11/04/2022 active albuterol (PROVENTIL HFA; VENTOLIN HFA) 108 (90 Base) MCG/ACT inhaler Inhale 2 puffs every 4 (four) hours as needed for wheezing. 11/04/2022 active amoxicillin-clavulan ate (AUGMENTIN) 875-125 MG per tablet Take 1 tablet by mouth 2 (two) times a day. Take with food and 8 ounces of water. 11/04/2022 active HumaLOG 100 UNIT/ML injection INJECT 70 TO 80 UNITS (0.7 - 0.8 ML) SUBCUTANEOUSLY DAILY - USE INSULIN PUMP DIRECTED 11/04/2022 active losartan (COZAAR) 25 MG tablet Take 25 mg by mouth daily. 11/04/2022 active levothyroxine (SYNTHROID, LEVOTHROID) 125 MCG tablet Take 125 mcg by mouth daily. 11/04/2022 active Problems Problem Status Onset Date Problem Type Date of Resoluti on Source Sore throat active EncounterDiagnosisAct CCT Strep pharyngitis active EncounterDiagnosisAct CCT
== END 2024-01-15 07:09 | disposition home or self-care (01) ==
LOC: HO.LAB 07:08
PROVIDERS: PCP Internal Medicine; Visit Provider Internal Medicine
DX: E78.00 Pure hypercholesterolemia, unspecified (principal); E10.9 Type 1 diabetes mellitus without complications; E11.65 Type 2 diabetes mellitus with hyperglycemia
CPT/HCPCS: 36415; 80053; 80061; 82043; 82306; 82570; 82607; 82746; 83036; 84439; 84443; 85025

== ENCOUNTER 2024-02-08 12:23 | Outpatient (AMB) | payer BC, SELFPAY ==
--- NOTE | 2024-02-08 12:37 | A.OFFPC_ITS ---
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 Accompanied by: Self / Same As Patient Allergies tree nut [TREE NUT] Allergy (Severe, Verified 02/08/24 12:38) ANAPHYLAXIS lisinopril Allergy (Unknown, Verified 02/08/24 12:38) cough Medication List - Last Reconciled 02/08/24 by Elysia Mak MD cholecalciferol (vitamin D3) 50 mcg PO DAILY flash glucose sensor (FreeStyle Cam 14 Day Sensor kit) As directed glucagon 3 mg/actuation (Baqsimi) 3 mg intranasal ONCE PRN insulin aspart U-100 (Novolog U-100 Insulin aspart) 70-80 u subcutaneously; uses insulin pump as directed 3 vials levothyroxine 125 mcg PO DAILY losartan 25 mg PO DAILY Tobacco use date assessed: 02/08/24 Dental Screening Dental Screen Date: 02/08/24 Did you have a dental visit in the last 12 months?: Yes Did you have a dental problem in the last 6 months where you did not have access to dental care?: No Was dental information given to patient?: Patient has dentist HPI Annual exam HPI Details The patient is a 48-year-old female presenting with diabetes mellitus, hypertension, and elevated cholesterol for management. The patient had previously been on Humalop for diabetes management but will be transitioning to Novolog due to changes in insurance coverage. She reported no side effects from her diabetes treatment regimen aside from an occasional elevated blood sugar reading. Her last hemoglobin A1c was well-managed at 5.9. Additionally, the patient has a history of hypertension, which appears to be controlled; she did not mention experiencing any related symptoms such as headaches or fatigue. The patient also presented with an elevated cholesterol level, which has recently improved from 108 mg/dL to 101 mg/dL, but she remains concerned due to the history of being diabetic. Her family history is notable for breast cancer in her mother and aunt, although she denies any personal history of malignancy and has a recent mammogram and breast ultrasound showing no significant findings with pain improvement. Her vitamin D deficiency is managed with supplementation, and the patient denies additional new medications or relevant symptoms associated with other conditions. - Recent mammogram and ultrasound showed no significant findings. - Annual influenza vaccination received. - Pneumonia and tetanus vaccinations up to date. - Blood work in January showing normal blood count, electrolytes, and kidney function. - Cholesterol level improved with recent reading of 101 mg/dL. - Cardiovascular risk calculated and fou nd to be low; no need for cholesterol medication currently. - Continues vitamin D supplementation as previously noted. - Drinks alcohol approximately once a we ek or less. - Denies tobacco and recreational drug u se. - Lives with her children and mentioned responsibilities associated with them. - Has not traveled recently and has stay ed home for holidays. - Labs: White blood cell count normal wi th elevated eosinophils, indicative of allergic response potential. Blood sugar level at 213, hemoglobin A1c at 5.9. Cholesterol at 101 mg/dL. - Imaging: Recent mammogram and ultrasou nd results indicating no abnormalities. [facility] Medical History (Updated 02/08/24 @ 12:56 by Elysia Mak MD) Mastalgia Breast mass, right Breast cancer screening by mammogram Hypercholesterolemia GERD (gastroesophageal reflux disease) Leukopenia Diabetes mellitus type 1 Hypothyroid Surgical History H/O ventral hernia repair History of tubal ligation Hx of radioactive iodine thyroid ablation History of section Family History Father Alive and well Mother Alive and well Breast cancer Maternal Grandmother Ovarian cancer Paternal Aunt Breast cancer Paternal Grandmother Schizophrenia Mental health disorder Social History Housing: House Alcohol intake: current Alcohol intake frequency: a few times a month Comment: once a week 1-2 glasses Patient Tobacco Use Status: Never used Tobacco e-Cigarette/Vaping Use: Never Used Second Hand Smoke Exposure: No Current occupational status: employed Cognitive needs: No Hearing needs: No Vision needs: Yes Female Reproductive History Menstrual Age of Menarche: 15 Questionnaire PHQ-9 Over the last 2 weeks, how often have you been bothered by any of the following problems? 1. Little interest or pleasure in doing things: not at all 2. Feeling down, depressed, or hopeless: not at all 3. Trouble falling or staying asleep, or sleeping too much: not at all 4. Feeling tired or having little energy: not at all 5. Poor appetite or overeating: not at all 6. Feeling bad about yourself - or that you are a failure or have let yourself or your family down: not at all 7. Trouble concentrating on things, such as reading the newspaper or watching television: not at all 8. Moving or speaking so slowly that other people could have noticed. Or the opposite - being so fidgety or restless that you have been moving around a lot more than usual: not at all 9. Thoughts that you would be better off or of hurting yourself in some way: not at all Total score: 0 Depression Screening Interpretation: Negative Depression Screening Done: Yes Source: Developed by Drs. Riley Torres, Yomaira Nieto, Cristi Viera and colleagues, with an educational michael from [employer]. Thrive Questionnaire Date Thrive assessed: 02/08/24 I am a: Patient What is your living situation today?: I have a steady place to live Within the past 12 months, did the food you bought not last and you didn't have the money to get more?: Never true Within the past 12 months, did you worry whether your food would run out before you got money to buy more?: Never true Do you have trouble paying for medicines?: No Do you have trouble getting transportation to medical appointments?: No Do you have trouble paying your heating and electricity bill?: No Do you have trouble taking care of your child, family member or friend?: No Do you have trouble with day-to-day activities such as bathing, preparing meals, shopping, managing finances, etc.?: No Are you currently unemployed and looking for a job?: No Are you interested in more education?: No Please select the resources that you would like help with: None Currently or been in a relationship where the following occur: No concerns reported THRIVE Score: 0 AUDIT C Alcohol Use Questionnaire (AUDIT-C) 1. How often do you have a drink containing alcohol?: 2-4 times a month 2. How many drinks containing alcohol do you have on a typical day when you are drinking?: 1 or 2 3. How often do you have six or more drinks on one occasion?: Never Total Score: 2 KRISTEN-7 AMB Questionnaire KRISTEN-7 Date KRISTEN - 7 assessed: 02/08/24 Feeling nervous, anxious, or on edge: 0 = Not at all Not being able to stop or control worryin = Not at all Worrying too much about different things: 0 = Not at all Trouble relaxin = Not at all Being so restless that it is hard to sit still: 0 = Not at all Becoming easily annoyed or irritable: 0 = Not at all Feeling afraid as if something awful might happen: 0 = Not at all Total KRISTEN-7 score (0-4 normal; 5-9 mild; 10-14 moderate; 15-21 severe): 0 Source: Developed by Drs. Riley Torres, Yomaira Nieto, Cristi Viera and colleagues, with an educational michael from [employer]. Review of Systems Const Denies poor appetite and Denies weakness Eyes Denies no additional complaints ENT Reports Normal hearing present, Denies dizziness, Denies nasal congestion, Denies tinnitus and Denies sore throat Card Denies chest pain, Denies syncope, Denies rapid heart rate and Denies dyspnea Resp Denies cough and Denies dyspnea GI Denies change in stool character, Reports constipation, Denies diarrhea, Denies nausea and Denies vomiting Denies urinary frequency, Denies difficulty voiding and Denies dysuria Neuro Reports Normal hearing present, Denies confusion, Denies dizziness, Denies syncope and Denies weakness Psych Denies confusion Physical exam (Primary Care) Vital Signs: Last Vital Signs Pulse 64 02/08/24 12:41 BP 124/64 02/08/24 12:41 Pulse Ox 99 02/08/24 12:41 BMI result Body Mass Index 27.0 Tobacco/Smoking Status: Tobacco use Status Tobacco use date assessed 02/08/24 02/08/24 12:47 Patient Tobacco Use Status Never used Tobacco 02/08/24 12:39 e-Cigarette/Vaping Use Never Used 02/08/24 12:39 PHQ-9: PHQ-9 Score PHQ-9: Total score 0 02/08/24 12:53 Depression Screening Interpretation: Negative Thrive Assessment: Date of Thrive Assessment Date Thrive assessed 02/08/24 02/08/24 12:39 Currently or been in a relationship where the following occur: No concerns reported Const General: No confusion Orientation/consciousness: No confusion HENMT Head: Yes normocephalic Ears: external ears normal and TM's normal bilaterally Face and sinus: Yes normal facial exam Mouth: moist mucous membranes Throat: Yes tonsils normal Eyes Conjunctivae: conjunctivae normal Pupils: Equal, round and reactive pupils present and Pupil accommodation reflex normal Direct Ophthalmoscopy: normal light reflex Neck Neck: No lymphadenopathy Thyroid: Thyroid normal Chest Chest palpation & inspection: normal inspection of the chest Resp Effort & Inspection: normal respiratory effort and no audible wheezes Auscultation: clear to auscultation bilaterally, no crackles, no wheezes and lung sounds not diminished Cardio Rate: regular rate Rhythm: regular rhythm Peripheral pulses: radial pulses present and dorsalis pedis present GI Palpation (GI): no masses Auscultation: normal bowel sounds and normoactive bowel sounds Rectal Exam - Female: deferred Skin General skin exam: no rashes or lesions noted Rashes: no rashes Neuro General: No confusion Cranial nerves: Yes Equal, round and reactive pupils present and Yes Normal hearing present Cognition (Neuro): normal cognition Gait exam (Neuro): Normal gait present Motor exam (neuro): 5/5 motor strength present throughout Deep tendon reflexes (DTR's): Right brachioradialis reflex intensity grade: 2+, Left brachioradialis reflex intensity grade: 2+, Right patellar reflex intensity grade: 2+ and Left patellar reflex intensity grade: 2+ Extrem General: No edema Coding Level of Care Code Est Pt Prev Care 40-64y(10554) Diagnoses Annual physical exam Z00.00 Type 1 diabetes mellitus without complication E10.9 Diabetes mellitus complication status: without complication Hypercholesterolemia E78.00 Acquired hypothyroidism E03.9 Hypothyroidism type: acquired Generalized anxiety disorder F41.1 Assessment & Plan Assessment & Plan (1) Annual physical exam: Code(s): Z00.00 - Encounter for general adult medical examination without abnormal findings Category: Medical (2) Diabetes mellitus type 1: Comment: on losartan to protect kidneys, Dr. Larios Code(s): E10.9 - Type 1 diabetes mellitus without complications Category: Medical Qualifiers: Diabetes mellitus complication status: without complication Qualified Code(s): E10.9 - Type 1 diabetes mellitus without complications (3) Hypercholesterolemia: Code(s): E78.00 - Pure hypercholesterolemia, unspecified Category: Medical (4) Hypothyroid: Comment: Hyperthyroidism status post iodine treatments hypothyroid Dr. Taylor March 2006 Code(s): E03.9 - Hypothyroidism, unspecified Category: Medical Qualifiers: Hypothyroidism type: acquired Qualified Code(s): E03.9 - Hypo thyroidism, unspecified (5) Generalized anxiety disorder: Code(s): F41.1 - Generalized anxiety disorder Category: Medical Plan - Prescribe Novolog to replace Humalop for diabetes management, ensuring prescription sent to [facility]. - Continue current hypertension management as condition is stable. - Encourage lifestyle modifications to safely lower cholesterol, while monitoring; no cholesterol medication needed at current levels. - Evaluate need for genetic testing given family history of breast cancer during follow-up if symptoms or history suggestions differ. - Continue monitoring vitamin D levels and supplement as necessary. - Routine follow-up in six months for monitoring of chronic conditions and repeat lab tests. During the visit, I discussed with the patient her current chronic conditions, focusing on managing diabetes, hypertension, and elevated cholesterol while considering family history of breast cancer. We confirmed the change from Humalop to Novolog, addressing insurance adjustments. I reassured her that her cardiovascular disease risk remains low with current markers, and therefore no need for cholesterol medication at this stage. We reviewed mammogram findings, noting no significant abnormalities and a resolved right breast pain symptom. Patient was informed about her blood results, ensuring continued monitoring. Discussed the benefits of the influenza vaccine and cardiovascular health recommendations. She was informed about follow-up plans and encouraged to maintain her preventive health measures. - Change your insulin prescription to Novolog as discussed. - Maintain a healthy diet and incorporate regular physical activity to keep cholesterol levels in check. - Monitor blood sugar levels regularly and maintain current diabetes management practices. - Seek medical attention if significant breast pain returns or other new sym ptoms develop. - Follow up in six months for routine monitoring and evaluation. - Ensure vaccinations are up to date and be cautious during flu season. - Continue vitamin D supplementation as recommended. Medications: New Novolog U-100 Insulin aspart (insulin aspart U-100) 70-80 u subcutaneously; uses insulin pump as directed 3 vials 30 mL 6RF NS E10.9 - Type 1 diabetes mellitus without complications
[2024-02-08 12:41] VITALS: BP 124/64; PULSE 64; O2SAT 99; BMI 27.0
== END 2024-02-08 13:14 | disposition home or self-care (01) ==
PROVIDERS: PCP Internal Medicine; Visit Provider Internal Medicine
DX: Z00.00 Encounter for general adult medical examination without abnormal findings (principal); E10.9 Type 1 diabetes mellitus without complications; E78.00 Pure hypercholesterolemia, unspecified; E03.9 Hypothyroidism, unspecified; F41.1 Generalized anxiety disorder

== ENCOUNTER → 2024-02-08 12:23 | Outpatient (BNVA) | payer BC, SELFPAY | PROVIDERS: PCP Internal Medicine; Visit Provider Internal Medicine ==

== ENCOUNTER 2024-06-27 13:42 | Outpatient (AMB) | payer BC, SELFPAY ==
--- NOTE | 2024-06-27 14:23 | A.OFFPC_ITS ---
Vital Signs 06/27/24 14:24 Height 5 ft 4 in Weight 159 lb 2 oz BMI 27.3 BP 120/72 Blood Pressure Location Rt brachial Position Sitting Pulse 72 Pulse Source Pulse Oximeter Temp 97.1 F Temp Source Temporal Artery Scan Pulse Oximetry (%) 98 Oxygen Delivery Method Room Air Intake Visit Reasons: Left shoulder pain Intake Note: Patient is here to follow up on Left shoulder pain. 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 Required: No Professional Development Manager: Not Required per policy Accompanied by: Self / Same As Patient Allergies tree nut [TREE NUT] Allergy (Severe, Verified 06/27/24 14:35) ANAPHYLAXIS lisinopril Allergy (Unknown, Verified 06/27/24 14:35) cough Medication List - Last Reconciled 06/27/24 by Kanika Steward PA-C cholecalciferol (vitamin D3) 50 mcg PO DAILY flash glucose sensor (FreeStyle Cam 14 Day Sensor kit) As directed glucagon 3 mg/actuation (Baqsimi) 3 mg intranasal ONCE PRN levothyroxine 125 mcg PO DAILY losartan 25 mg PO DAILY Novolog U-100 Insulin aspart (insulin aspart U-100) 70-80 u subcutaneously; uses insulin pump as directed 3 vials NS Tobacco use date assessed: 06/27/24 Dental Screening Dental Screen Date: 02/08/24 HPI Left shoulder pain HPI Details The patient is a 49-year-old female presenting with left shoulder pain primarily attributed to an exercise-related injury suspected from lifting weights or doing too many push-ups. The pain commenced around late February or early March, with the patient initially managing the condition with rest, ice, and the use of ibuprofen, reporting some improvement but persistent pain in certain movements. There is an absence of numbness, tingling, or neck pain ass ociated with the shoulder discomfort. The patient highlights specific difficulties with shoulder mobility, notably with tasks such as putting a coat on and catching softballs, which implicates increased pain during backward extension and lifting movements. There is no imaging undertaken previously due to insurance issues, with the preference being for physical therapy as a starting point. The situation has affected the patient's daily activities, particularly those involving raising the elbow backward and tasks necessitating the left arm's rotational and backward extension capacity. Social History - The patient has a daughter who plays s [employer], indicating a level of physical interaction. - The patient participates in physical e xercise routines involving weights and push-ups. PFSH Medical History Left shoulder pain Mastalgia Breast mass, right Breast cancer screening by mammogram Hypercholesterolemia GERD (gastroesophageal reflux disease) Leukopenia Diabetes mellitus type 1 Hypothyroid Surgical History H/O ventral hernia repair History of tubal ligation Hx of radioactive iodine thyroid ablation History of section Family History Father Alive and well Mother Alive and well Breast cancer Maternal Grandmother Ovarian cancer Paternal Aunt Breast cancer Paternal Grandmother Schizophrenia Mental health disorder Social History Housing: House Alcohol intake: current Alcohol intake frequency: a few times a month Comment: once a week 1-2 glasses Patient Tobacco Use Status: Never used Tobacco e-Cigarette/Vaping Use: Never Used Second Hand Smoke Exposure: No service: No Current occupational status: employed Cognitive needs: No Hearing needs: No Vision needs: Yes Female Reproductive History Menstrual Age of Menarche: 15 Questionnaire Thrive Questionnaire Date Thrive assessed: 02/08/24 I am a: Patient What is your living situation today?: I have a steady place to live Within the past 12 months, did the food you bought not last and you didn't have the money to get more?: Never true Within the past 12 months, did you worry whether your food would run out before you got money to buy more?: Never true Do you have trouble paying for medicines?: No Do you have trouble getting transportation to medical appointments?: No Do you have trouble paying your heating and electricity bill?: No Do you have trouble taking care of your child, family member or friend?: No Do you have trouble with day-to-day activities such as bathing, preparing meals, shopping, managing finances, etc.?: No Are you currently unemployed and looking for a job?: No Are you interested in more education?: No Please select the resources that you would like help with: None Currently or been in a relationship where the following occur: No concerns reported THRIVE Score: 0 KRISTEN-7 AMB Questionnaire KRISTEN-7 Date KRISTEN - 7 assessed: 02/08/24 Source: Developed by Drs. Riley Torres, Yomaira Nieto, Cristi Viera and colleagues, with an educational michael from [employer]. Review of Systems Const Details: - Musculoskeletal: Reports left shoulder pain with certain movements. Denies numbness or tingling. - Neurological: Denies numbness or tingling. - General: Denies neck pain. Reports difficulty with specific shoulder movements. Physical exam (Primary Care) Vital Signs: Last Vital Signs Temp 97.1 F 06/27/24 14:24 Pulse 72 06/27/24 14:24 BP 120/72 06/27/24 14:24 Pulse Ox 98 06/27/24 14:24 Oxygen Delivery Method Room Air 06/27/24 14:24 BMI result Body Mass Index 27.3 Tobacco/Smoking Status: Tobacco use Status Tobacco use date assessed 06/27/24 06/27/24 14:27 Patient Tobacco Use Status Never used Tobacco 06/27/24 14:27 e-Cigarette/Vaping Use Never Used 06/27/24 14:27 Thrive Assessment: Date of Thrive Assessment Date Thrive assessed 02/08/24 06/27/24 14:27 Currently or been in a relationship where the following occur: No concerns reported Const Other: Appearance: Alert. Oriented X3. No acute distress. Head: Normal external exam. Normocephalic. Atraumatic. Eyes: Pupils are equal, round, and reactive to light. Extraocular movements intact. Conjunctiva and sclera normal. Eyelids normal. Throat: Pharynx normal. Uvula midline. Moist mucous membranes. Neck: Normal inspection. Neck supple. Full range of motion. Cardiovascular: Normal heart rate and rhythm. Respiratory: No respiratory distress. Painless inspiration. Back: ull range of motion noted. Skin: Skin warm and dry. Normal skin color. Normal skin turgor. No rashes/lesions/lacerations noted. Extremities: Patient with pain to left shoulder with flexion, external rotation, internal rotation, abduction. Otherwise all other extremities exhibit normal range of motion nontender. She has tenderness right over the left AC joint anteriorly. No obvious deformities, signs of infection no upper extremity edema noted. Normal pulses are noted. No cyanosis. Normal capillary refill. Neuro: Oriented X 3. No motor deficit. No sensory deficit. Reflexes normal. Coding Level of Care Code Est Pt Level 4 (39651) Diagnoses Left shoulder pain M25.512 Assessment & Plan Assessment & Plan (1) Left shoulder pain: Code(s): M25.512 - Pain in left shoulder Category: Medical Plan: The patient will start physical therapy considering her preference and insurance constraints, to manage the left shoulder pain attributed to an exercise-related injury. Meanwhile, she will continue to use NSAIDs and start a muscle relaxant to alleviate the symptoms. Initial imaging is deferred based on insurance preferences unless the condition does not improve, in which case reconsideration of diagnostics may occur. Counseling on avoiding specific provocative movements and utilizing non-pharmacologic interventions like applied cold therapy will be part of the management strategy. Plan Plan Patient was informed and verbally consented to the use of an ambient scribe for clinic note documentation during this visit. 1. Left Shoulder Pain The patient will start physical therapy considering her preference and insurance constraints, to manage the left shoulder pain attributed to an exercise-related injury. Meanwhile, she will continue to use NSAIDs and start a muscle relaxant to alleviate the symptoms. Initial imaging is deferred based on insurance preferences unless the condition does not improve, in which case reconsideration of diagnostics may occur. Counseling on avoiding specific provocative movements and utilizing non-pharmacologic interventions like applied cold therapy will be part of the management strategy. Orders: Orders PT Evaluation and Treatment Today M25.512 - Pain in left shoulder Medications: New cyclobenzaprine 10 mg PO TID 60 tabs 0RF meloxicam 15 mg PO DAILY 60 tabs 1RF Patient Instructions: - Begin physical therapy for the left shoulder as planned. - Use meloxicam as prescribed once daily for inflammation and pain. - Take the muscle relaxant (Flexeril) primarily at bedtime to avoid drowsiness during daily activities. - Avoid driving or operating heavy machinery after taking the muscle relaxant. - Continue with rest, ice applications, and avoiding movements that provoke pain. - Contact us if the pain worsens or if there is no improvement after therapy.
[2024-06-27 14:24] VITALS: BP 120/72; PULSE 72; TEMP 36.2; O2SAT 98; BMI 27.3
== END 2024-06-27 14:42 | disposition home or self-care (01) ==
LOC: HO.HMCH 13:42
PROVIDERS: PCP Internal Medicine; Visit Provider Physician Assistant Medical
DX: M25.512 Pain in left shoulder (principal)

== ENCOUNTER → 2024-06-27 13:42 | Outpatient (BNVA) | payer BC, SELFPAY | PROVIDERS: PCP Internal Medicine; Visit Provider Physician Assistant Medical ==

== ENCOUNTER 2024-08-14 08:15 | Outpatient (AMB) | payer BC, SELFPAY ==
--- OUTSIDE RECORDS SUMMARY | 2024-08-14 08:18 | XMS_ITS | Clinical Summary ---
Author Organization [facility] Address [address] [place] [address] Care Team Providers Care Unemployment Claims Adjudicator Name Role Phone Elysia Mak MD Primary Care Provider [phone] Allergies Active Allergy Reactions Criticality Noted Date Comments Lisinopril Unknown/Patient and Family Unable to Define Medium 09/26/2023 Tree Nut Unknown/Patient and Family Unable to Define Medium 09/26/2023 Medications HumaLOG 100 UNIT/ML injection INJECT 70 TO 80 UNITS (0.7 - 0.8 ML) SUBCUTANEOUSLY DAILY - USE INSULIN PUMP DIRECTED 3 Active levothyroxine (SYNTHROID, LEVOTHROID) 125 MCG tablet Take 125 mcg by mouth daily. 3 Active losartan (COZAAR) 25 MG tablet Take 25 mg by mouth daily. 3 Active albuterol (PROVENTIL HFA; VENTOLIN HFA) 108 (90 Base) MCG/ACT inhalerIndicat ions:Acute asthmatic bronchitis Inhale 2 puffs every 4 (four) hours as needed for wheezing. 1 each 3 Active spacer for MDI (Aerochamber/B reatheRite/Ell ipse) DeviceIndicati ons:Acute asthmatic bronchitis Use as instructed 1 each 3 Active amoxicillin-cl avulanate (AUGMENTIN) 875-125 MG per tabletIndicati ons:Acute bacterial sinusitis Take 1 tablet by mouth 2 (two) times a day. Take with food and 8 ounces of water. 20 tablet 3 Active Active Problems No known active problems Social History Tobacco Use Types Packs/Day Years Used Date Smoking Tobacco: Never Assessed Comments Unknown Sex and Gender Information Value Date Recorded Sex Assigned at Not on file Legal Sex Female 2:28 PM EDT Gender Identity Not on file Sexual Orientation Not on file Last Filed Vital Signs Vital Sign Reading Time Taken Comments Blood Pressure 123/78 09/26/2023 3:16 PM EDT Pulse 62 09/26/2023 3:16 PM EDT Temperature 36.9 C (98.5 F) 09/26/2023 3:16 PM EDT Respiratory Rate - - Oxygen Saturation 99% 09/26/2023 3:16 PM EDT Inhaled Oxygen Concentration - - Weight - - Height - - Body Mass Index - - Plan of Treatment Health Maintenance Due Date Last Done Comments Hepatitis C Virus Screening 1977 HIV Screening 1990 DTaP/Tdap/Td Vaccines (1 - Tdap) 1996 Hepatitis B Vaccines (1 of 3 - 19+ 3-dose series) 1996 Pap Smear (Ages 21-65) 1998 Mammogram 2017 Colonoscopy 2022 COVID-19 Vaccine ( - 2023-2 5 season) 2023 Influenza Vaccine 09/06/2024 Pneumococcal Vaccine: Pediat siobhan (0-5 Years) and At-Risk Patients (6 to 49 Years) Aged Out No longer eligible b ased on patient's age to complete this topic Insurance [facility] OUT [facility] - HMO Care Teams Unemployment Claims Adjudicator Relationship Specialty Start Date End Date Obdulio, Elysia Mills MD [address] [place] [address] [place] [id number] PCP - General Internal Medicine 11/02/22
--- OUTSIDE RECORDS SUMMARY | 2024-08-14 08:18 | XMS_ITS ---
Author Name [facility] Organization Unknown History of Medication Use Medication Directions Dispensed Refills Start Date End Date Stat us albuterol (PROVENTIL HFA; VENTOLIN HFA) 108 (90 Base) MCG/ACT inhaler Inhale 2 puffs every 4 (four) hours as needed for wheezing. 11/02/2022 active Allergies Allergen Reaction Severity Comment Documented Date Source Statu s TREE NUT UNKNOWN/PATIENT AND FAMILY UNABLE TO DEFINE 09/26/2023 [facility] active LISINOPRIL UNKNOWN/PATIENT AND FAMILY UNABLE TO DEFINE [facility] Problems Problem Status Onset Date Problem Type Date of Resoluti on Source Sore throat active EncounterDiagnosisAct [facility] Strep pharyngitis active EncounterDiagnosisAct [facility] Encounters Encounter Type Encounter Reason Primary Diagnosis Location Date Ambulatory Acute pharyngitis, unspecified Acute pharyngitis, unspecified [facility] 09/26/2023 Ambulatory Acute sinusitis, unspecified Acute sinusitis, unspecified [facility] 11/02/2022 Care Team Organization Name Specialty Phone Email Start Date End Da te [facility] 06/19/2024 [facility] 02/26/2023 [facility] 11/02/2022 04/24/2024 [facility] 11/02/2022 11/02/2022
[2024-08-14 08:54] VITALS: BP 106/78; PULSE 101; O2SAT 98; BMI 27.1
--- NOTE | 2024-08-14 08:54 | MHC.PC.OV ---
Vital Signs 08/14/24 08:54 Height 5 ft 4 in Weight 158 lb 2 oz BMI 27.1 BP 106/78 Blood Pressure Location Lt brachial Position Sitting Pulse 101 H Pulse Source Pulse Oximeter Pulse Oximetry (%) 98 Oxygen Delivery Method Room Air Intake Visit Reasons: DM Ms Sql Developer Required: No Accompanied by: Self / Same As Patient Allergies tree nut (TREE NUT) Allergy (Severe, Verified 08/14/24 08:58) ANAPHYLAXIS lisinopril Allergy (Unknown, Verified 08/14/24 08:58) cough Medication List - Last Reconciled 08/14/24 by Alondra Villarreal PA-C cholecalciferol (vitamin D3) 50 mcg PO DAILY cyclobenzaprine 10 mg PO TID flash glucose sensor (FreeStyle Cam 14 Day Sensor kit) As directed glucagon 3 mg/actuation (Baqsimi) 3 mg intranasal ONCE PRN levothyroxine 125 mcg PO DAILY losartan 25 mg PO DAILY meloxicam 15 mg PO DAILY Novolog U-100 Insulin aspart (insulin aspart U-100) 70-80 u subcutaneously; uses insulin pump as directed 3 vials NS Tobacco use date assessed: 08/14/24 Dental Screening Dental Screen Date: 08/14/24 Did you have a dental visit in the last 12 months?: Yes Did you have a dental problem in the last 6 months where you did not have access to dental care?: No Was dental information given to patient?: Patient has dentist HPI DM HPI Details 49-year-old female with past medical history of diabetes mellitus, hypothyroid, hypercholesterolemia, generalized anxiety disorder and abnormal uterine bleeding last seen 06/2024 by PA coming in for follow up on diabetes. Presenting with a follow-up on diabetes management and other health concerns. The patient has been managing diabetes with insulin therapy, with recent A1c levels at 5.7, indicating good control. She reports occasional mild hypoglycemic episodes but no severe incidents. The patient underwent a bone density scan at her workplace, which indicated osteopenia, just above the threshold for osteoporosis. She is concerned due to her active lifestyle, including weightlifting, and the potential impact of long-term diabetes on bone health. The patient reports significant sleep disturbances, exacerbated by environmental noise and family activities. She found relief using Flexeril at night, which improved her ability to return to sleep after waking. [facility] Medical History Left shoulder pain Mastalgia Breast mass, right Breast cancer screening by mammogram Hypercholesterolemia GERD (gastroesophageal reflux disease) Leukopenia Diabetes mellitus type 1 Hypothyroid Surgical History H/O ventral hernia repair History of tubal ligation Hx of radioactive iodine thyroid ablation History of section Family History Father Alive and well Mother Alive and well Breast cancer Maternal Grandmother Ovarian cancer Paternal Aunt Breast cancer Paternal Grandmother Schizophrenia Mental health disorder Social History Housing: House Alcohol intake: current Alcohol intake frequency: a few times a month Comment: once a week 1-2 glasses Patient Tobacco Use Status: Never used Tobacco e-Cigarette/Vaping Use: Never Used Second Hand Smoke Exposure: No service: No Current occupational status: employed Cognitive needs: No Hearing needs: No Vision needs: Yes Female Reproductive History Menstrual Age of Menarche: 15 Questionnaire PHQ-9 Over the last 2 weeks, how often have you been bothered by any of the following problems? 1. Little interest or pleasure in doing things: not at all 2. Feeling down, depressed, or hopeless: not at all 3. Trouble falling or staying asleep, or sleeping too much: not at all 4. Feeling tired or having little energy: not at all 5. Poor appetite or overeating: not at all 6. Feeling bad about yourself - or that you are a failure or have let yourself or your family down: not at all 7. Trouble concentrating on things, such as reading the newspaper or watching television: not at all 8. Moving or speaking so slowly that other people could have noticed. Or the opposite - being so fidgety or restless that you have been moving around a lot more than usual: not at all 9. Thoughts that you would be better off or of hurting yourself in some way: not at all Total score: 0 Depression Screening Interpretation: Negative Depression Screening Done: Yes Source: Developed by Drs. Riley Torres, Yomaira B.WCristi Mendez and colleagues, with an educational michael from [employer]. Thrive Questionnaire Date Thrive assessed: 08/14/24 I am a: Patient What is your living situation today?: I have a steady place to live Within the past 12 months, did the food you bought not last and you didn't have the money to get more?: Never true Within the past 12 months, did you worry whether your food would run out before you got money to buy more?: Never true Do you have trouble paying for medicines?: No Do you have trouble getting transportation to medical appointments?: No Do you have trouble paying your heating and electricity bill?: No Do you have trouble taking care of your child, family member or friend?: No Do you have trouble with day-to-day activities such as bathing, preparing meals, shopping, managing finances, etc.?: No Are you currently unemployed and looking for a job?: No Are you interested in more education?: No Please select the resources that you would like help with: None Currently or been in a relationship where the following occur: No concerns reported THRIVE Score: 0 AUDIT C Alcohol Use Questionnaire (AUDIT-C) 1. How often do you have a drink containing alcohol?: 2-4 times a month 2. How many drinks containing alcohol do you have on a typical day when you are drinking?: 1 or 2 3. How often do you have six or more drinks on one occasion?: Never Total Score: 2 KRISTEN-7 AMB Questionnaire KRISTEN-7 Date KRISTEN - 7 assessed: 08/14/24 Feeling nervous, anxious, or on edge: 0 = Not at all Not being able to stop or control worryin = Not at all Worrying too much about different things: 0 = Not at all Trouble relaxin = Not at all Being so restless that it is hard to sit still: 0 = Not at all Becoming easily annoyed or irritable: 0 = Not at all Feeling afraid as if something awful might happen: 0 = Not at all Total KRISTEN-7 score (0-4 normal; 5-9 mild; 10-14 moderate; 15-21 severe): 0 Source: Developed by Drs. Riley Torres, Cristi Allen and colleagues, with an educational michael from [employer]. Review of Systems Const Denies body aches, Denies chills, Denies fever(s), Denies headache(s) and Denies poor appetite Eyes Reports no additional complaints ENT Denies dysphagia, Denies dizziness, Denies headache(s) and Denies odynophagia Card Denies chest pain, Denies syncope, Denies edema, Denies irregular heart rhythm, Denies lightheadedness and Denies dyspnea Resp Denies cough and Denies dyspnea GI Denies abdominal pain, Denies constipation, Denies dysphagia, Denies diarrhea, Denies nausea, Denies odynophagia and Denies vomiting Reports no additional complaints Musc Reports no additional complaints and Denies abnormal gait Skin/Breast Reports system reviewed and no additional complaints, except as documented Neuro Denies abnormal gait, Denies dizziness, Denies syncope and Denies headache(s) Psych Reports no additional complaints Physical exam (Primary Care) Vital Signs: Last Vital Signs Pulse 101 H 08/14/24 08:54 BP 106/78 08/14/24 08:54 Pulse Ox 98 08/14/24 08:54 Oxygen Delivery Method Room Air 08/14/24 08:54 BMI result Body Mass Index 27.1 Tobacco/Smoking Status: Tobacco use Status Tobacco use date assessed 08/14/24 08/14/24 08:58 Patient Tobacco Use Status Never used Tobacco 08/14/24 08:58 e-Cigarette/Vaping Use Never Used 08/14/24 08:58 PHQ-9: PHQ-9 Score PHQ-9: Total score 0 08/14/24 09:24 Depression Screening Interpretation: Negative Thrive Assessment: Date of Thrive Assessment Date Thrive assessed 08/14/24 08/14/24 08:58 Currently or been in a relationship where the following occur: No concerns reported Const General: cooperative, healthy appearing, comfortable and no acute distress Orientation/consciousness: patient oriented x3 HENMT Head: Yes normocephalic Ears: hearing grossly normal bilaterally General nose exam: Normal external nose present Eyes General: appearance normal, both eyes and all related structures Conjunctivae: conjunctivae normal Neck Neck: Yes full ROM and Yes no lymphadenopathy Resp Effort & Inspection: normal respiratory effort Auscultation: clear to auscultation bilaterally, no crackles, no rales, no rhonchi and no wheezes Cardio Rate: regular rate Rhythm: regular rhythm Skin General skin exam: no rashes or lesions noted Neuro General: patient oriented x3 Gait exam (Neuro): Normal gait present Extrem General: Yes normal to inspection, Yes full ROM and No edema Psych Affect: normal affect Attitude: cooperative Insight: Good insight present (Psych) Judgement: Good judgement present (Psych) Coding Level of Care Code Est Pt Level 3 (00863) Diagnoses Hypercholesterolemia E78.00 Type 1 diabetes mellitus without complication E10.9 Diabetes mellitus complication status: without complication Acquired hypothyroidism E03.9 Hypothyroidism type: acquired Insomnia G47.00 Abnormal bone density screening R93.7 Assessment & Plan Assessment & Plan (1) Hypercholesterolemia: Code(s): E78.00 - Pure hypercholesterolemia, unspecified Category: Medical Plan: Avoid foods that are high in cholesterol such as red meat, fried foods, eggs and baked goods. Triglyceride goal of less than 150 and LDL goal of less than 100. Ordered for updated blood work. (2) Diabetes mellitus type 1: Comment: on losartan to protect kidneys, Dr. Larios Code(s): E10.9 - Type 1 diabetes mellitus without complications Category: Medical Qualifiers: Diabetes mellitus complication status: without complication Qualified Code(s): E10.9 - Type 1 diabetes mellitus without complications Plan: Decrease the amount of carbohydrates such as pasta, bread, rice, and potatoes and limit the amount of sweets. Although fruits are generally healthy they should be eaten in moderation as they are still high in sugar. Hemoglobin A1c goal of less than 7%. A1c in the clinic is 5.7% she has good control of her blood sugars. Denies any lows at this time. (3) Hypothyroid: Comment: Hyperthyroidism status post iodine treatments hypothyroid Dr. Taylor March 2006 Code(s): E03.9 - Hypothyroidism, unspecified Category: Medical Qualifiers: Hypothyroidism type: acquired Qualified Code(s): E03.9 - Hypothyroidism, unspecified Plan: Ordered for updated blood work and continue on Levothyroxine 125 mcg. (4) Insomnia: Code(s): G47.00 - Insomnia, unspecified Category: Medical Plan: Plan to trial Hydroxyzine as needed for sleep. She will follow up as needed for this concern. (5) Abnormal bone density screening: Code(s): R93.7 - Abnormal findings on diagnostic imaging of other parts of musculoskeletal system Category: Medical Plan: PLan to order for formal bone density screening for osteopenia. She will bring us the results from her original bone density screening as well. Discussed increasing dietary calcium and staying on Vitamin D supplement. Plan For diabetes management, the patient's A1c level of 5.7 indicates good control, and she will continue her current insulin regimen. She should monitor for hypoglycemic episodes and report any significant changes. Regarding osteopenia, a formal bone density screening will be scheduled to assess the severity. The patient is advised to increase dietary calcium and vitamin D intake to support bone health. For sleep disturbances, hydroxyzine has been prescribed to aid sleep, with instructions to monitor for any side effects such as grogginess or urinary retention. The patient will follow up in six months for routine evaluation and to reassess her conditions. This note was constructed using voice recognition software. While every effort has been made to ensure accuracy and malt liquors sales supervisor, still areas may have been included sometimes these areas may affect the content or meeting of the given symptoms. Total time spent caring for the patient today was 20 minutes. This includes time spent before the visit reviewing the chart, time spent during the visit, and time spent after the visit and documentation. Patient was informed and verbally consented to the use of an ambient scribe for clinic note documentation during this visit. Orders: Orders AMB Hemoglobin A1c Today Z13.9 - Encounter for screening, unspecified TSH reflex Free T4 Today E03.9 - Hypothyroidism, unspecified, Z00.00 - Encounter for general adult medical examination without abnormal findings Hemoglobin A1c Today E11.65 - Type 2 diabetes mellitus with hyperglycemia Vitamin B12 and Folate Today E10.9 - Type 1 diabetes mellitus without complications, Z13.21 - Encounter for screening for nutritional disorder Vitamin D 25-OH Total Today E10.9 - Type 1 diabetes mellitus without complications, Z00.00 - Encounter for general adult medical examination without abnormal findings Free T4 (Free Thyroxine) Today E03.9 - Hypothyroidism, unspecified, Z00.00 - Encounter for general adult medical examination without abnormal findings Lipid Panel Today E78.00 - Pure hypercholesterolemia, unspecified Comprehensive Met. Panel Today E10.9 - Type 1 diabetes mellitus without complications, Z00.00 - Encounter for general adult medical examination without abnormal findings Complete Blood Count Auto Diff Today E10.9 - Type 1 diabetes mellitus without complications, Z00.00 - Encounter for general adult medical examination without abnormal findings XR DEXA axial skeleton Today R93.7 - Abnormal findings on diagnostic imaging of other parts of musculoskeletal system Medications: New hydroxyzine HCl 10 mg PO BEDTIME 90 tabs 0RF Refilled Novolog U-100 Insulin aspart (insulin aspart U-100) 70-80 u subcutaneously; uses insulin pump as directed 3 vials 30 mL 6RF NS E10.9 - Type 1 diabetes mellitus without complications Discontinued meloxicam Discontinued Reason: Patient no longer taking 15 mg PO DAILY 60 tabs 1RF
== END 2024-08-14 09:33 | disposition home or self-care (01) ==
LOC: HO.HMCH 08:16
PROVIDERS: PCP Internal Medicine
DX: E78.00 Pure hypercholesterolemia, unspecified (principal); E10.9 Type 1 diabetes mellitus without complications; E03.9 Hypothyroidism, unspecified; G47.00 Insomnia, unspecified; R93.7 Abnormal findings on diagnostic imaging of other parts of musculoskeletal system

== ENCOUNTER 2024-12-10 12:40 | Outpatient (REF) | payer BC, SELFPAY ==
--- NOTE | ~2024-12-10 | MM_ITS ---
EXAMINATION: DXA BONE DENSITY AXIAL HISTORY: R93.7 - Abnormal findings on diagnostic imaging of other parts of muscul... TECHNIQUE: Pharminox Dual energy absorptiometry (DEXA) of the lumbar spine, total left hip, and femoral neck was performed. COMPARISON: Comparison is made with the prior examination dated . FINDINGS: The bone mineral density of the lumbar spine is 1.551 g/cm2, corresponding to a T-score of 3.1, and a Z-score of 3.2. This is indicative of normal bone mineral density. The bone mineral density of the left total hip is 1.052 g/cm2, corresponding to a T-score of 0.4, and a Z-score of 0.7. This is indicative of normal bone mineral density. The bone mineral density of the left femoral neck is 0.969 g/cm2, corresponding to a T-score of -0.5, and a Z-score of 0.1. This is indicative of normal bone mineral density. FRACTURE RISK: The FRAX index suggests a ten year probability of major osteoporotic fracture of 3.1%, and of hip fracture 0.1%. MM/XR DEXA axial skeleton IMPRESSION: Based on bone mineral density, and according to World Health Organization (WHO) criteria, the diagnosis is consistent with normal bone mineral density based on lowest T score of -0.5 in the left femoral neck. Fracture risk is low. Statistically, 68% of repeat scans fall within 1 SD (+/- 0.010 g/cm2 for AP spine L1-L4) and 1 SD (+/- 0.012 g/cm2 for femur total) FRAX is a trademark of the [employer]'s [place] for Metabolic Bone Disease, a World Health Organization (WHO) Collaborating Center. Electronically signed by: Kimberly Salas MD 12/11/2024 08:20 AM [facility]
--- OUTSIDE RECORDS SUMMARY | 2024-12-10 15:22 | XMS_ITS | Clinical Summary ---
Author Organization [facility] Address [address] [place] [id number] Care Team Providers Care Aoc Director Combat Operations Officer Name Role Phone Elysia Mak MD Primary Care Provider [phone] Allergies Active Allergy Reactions Criticality Noted Date [...] (Ages 21-65) 1998 Mammogram 2017 Colonoscopy 2022 Influenza Vaccine 09/06/2024 COVID-19 Vaccine (1 - 2023-2 5 season) 2024 Pneumococcal Vaccine: Pediat siobhan (0-5 Years) and At-Risk Patients (6 to 49 Years) Aged Out No longer eligible b ased on patient's age to complete this topic Insurance [facility] OUT [facility] - HMO Care Teams Aoc Director Combat Operations Officer Relationship Specialty Start Date End Date Obdulio, Elysia Mills MD [address] [place] [address] [place] [phone] PCP - General Internal Medicine 11/02/22
--- OUTSIDE RECORDS SUMMARY | 2024-12-10 15:22 | XMS_ITS | Clinical Summary ---
Author Organization [employer] Address [address] [facility] [address] [place] [address] Care Team Providers Care Painter Spray Name Role Phone Unavailable Primary Care Provider Unavailabl e Encounters Date Type Department Care Team Description 10/29/2024 11:00 AM EDT Immunization [facility] [address] [place] [address] Encounter for vaccination; Encounter for immunization from Last 3 Months Immunizations Immunization Administration Dates Next Due Influenza, seasonal, injectable, preservative fr ee 10/29/2024,10/26/2023 Pfizer Covid-19 Vaccine 12+ 10/29/2024, Social History Tobacco Use Types Packs/Day Years Used Date Smoking Tobacco: Never Assessed Comments Unknown Sex and Gender Information Value Date Recorded Sex Assigned at Female 10/26/2023 3:10 PM EDT Legal Sex Female 3:15 PM EDT Gender Identity Female 10/26/2023 3:10 PM EDT Sexual Orientation Straight 10/26/2023 3: 10 PM EDT Plan of Treatment Health Maintenance Due Date Last Done Comments CT Colonography 1977 Colonoscopy 1977 Colorectal Cancer Screening 1977 Depression Screening 1977 FIT DNA/Cologuard 1977 FIT 1977 FOBT 1977 HIV Screening 1977 SDOH Screening 1977 Sigmoidoscopy 1977 Disability Screening 1977 Alcohol/Substance Use Screening 1989 Tobacco Screening 1989 Family Planning (PISQ) 1992 Hepatitis C Screening 1995 DTaP/Tdap/Td Vaccines (1 - Tdap) 1996 Hepatitis B Vaccines (1 of 3 - 19+ 3-dose series) 1996 Pap Smear 1998 Cervical Cancer Screening 2007 HPV/Cotest 2007 Mammogram 2017 Zoster Vaccines (1 of 2) 2027 RSV Patients and Patients Aged 60 years or older (1 - 1-dose 75+ series) 2052 COVID-19 Vaccine Completed 10/29/2024, 10/26/2023 Influenza Vaccine Completed 10/29/2024, 10/26/2023 HIB Vaccines Aged Out No longer eligi ble based on patient's age to complete this topic HPV Vaccines Aged Out No longer eligi ble based on patient's age to complete this topic Hepatitis A Vaccines Aged Out No long er eligible based on patient's age to complete this topic IPV Vaccines Aged Out No longer eligi ble based on patient's age to complete this topic Meningococcal B Vaccine Aged Out No l onger eligible based on patient's age to complete this topic Meningococcal Vaccine Aged Out No dilcia home eligible based on patient's age to complete this topic Pneumococcal Vaccine: Pediatrics (0 to 5 Years) and At-Risk Patients (6 to 49) Years Aged Out No longer eligible b ased on patient's age to complete this topic RSV under 20 months Aged Out No longe r eligible based on patient's age to complete this topic Rotavirus Vaccines Aged Out No longer eligible based on patient's age to complete this topic Insurance
== END 2024-12-10 12:41 | disposition home or self-care (01) ==
LOC: HO.MAMMO 12:40
PROVIDERS: PCP Internal Medicine; Visit Provider Internal Medicine
DX: Z13.820 Encounter for screening for osteoporosis (principal); R93.7 Abnormal findings on diagnostic imaging of other parts of musculoskeletal system
CPT/HCPCS: 77080

== ENCOUNTER → 2024-12-10 13:00 | Outpatient (BNV) | payer BC, SELFPAY | PROVIDERS: PCP Internal Medicine; Visit Provider Radiology Diagnostic Radiology | DX: E28.39 Other primary ovarian failure (principal) | CPT/HCPCS: 77080 ==

== ENCOUNTER 2025-01-22 07:36 | Outpatient (REF) | payer BC, SELFPAY ==
--- OUTSIDE RECORDS SUMMARY | 2025-01-22 07:39 | XMS_ITS | Clinical Summary ---
Author Organization [employer] Address [address] [facility] [address] [place] [address] Care Team Providers Care Director Sales Training Name Role Phone Unavailable Primary Care Provider Unavailabl e Encounters Date Type Department Care Team Description 10/29/2024 11:00 AM EDT Immunization [facility] [address] [place] [address] Encounter for vaccination; Encounter for immunization from [...]
--- OUTSIDE RECORDS SUMMARY | 2025-01-22 07:39 | XMS_ITS | Clinical Summary ---
Author Organization [facility] Address [address] [place] [id number] Care Team Providers Care Caustics Loader Name Role Phone Elysia Mak MD Primary Care Provider [phone] Allergies Active Allergy Reactions Criticality Noted Date [...] Influenza Vaccine 09/06/2024 COVID-19 Vaccine (1 - 2024-2 6 season) 2024 Pneumococcal Vaccine: Pediat siobhan (0-5 Years) and At-Risk Patients (6 to 49 Years) Aged Out No longer eligible b ased on patient's age to complete this topic Insurance [facility] - HMO Care Teams Caustics Loader Relationship Specialty Start Date End Date Obdulio, Elysia Mills MD [address] [place] [address] [place] [id number] PCP - General Internal Medicine 11/02/22
[2025-01-22 10:32] LABS: MANUAL DIFF FLAG NO
[2025-01-22 10:54] LABS: Hematocrit 44.1 % (37.0-47.0); Hemoglobin 15.4 g/dl (12.0-16.0); Imm Gran Abs Auto 0.01 X10*3/uL (0.00-0.03); Imm Gran Pct Auto 0.2 % (0.0-0.4); Lymphocytes Absolute Auto 1.2 X10*3/uL (1.2-4.9); Mean Corpuscular HGB Conc 34.9 g/dl (31.0-35.0); Mean Corpuscular Hemoglobin 32.4 pg (27.0-33.0); Mean Corpuscular Volume 92.8 fL (80.0-98.0); NRBC Abs Auto 0.000 X10*3/uL (0.0-0.012); NRBC Pct Auto 0.0 /100WBC (0.0-0.2); Platelet Count 249 X10*3/uL (160-400); Red Blood Count 4.75 X10*6/uL (4.20-5.50); White Blood Count 4.5 X10*3/uL (4.8-10.8)
[2025-01-22 11:09] LABS: Alanine Aminotransferase 15 U/L (0-31); Albumin Level 4.5 g/dL (3.5-5.0); Alkaline Phosphatase 51 U/L (39-117); Anion Gap 11 (12-20); Aspartate Amino Transferase 25 U/L (5-31); Blood Urea Nitrogen 15 mg/dL (9-16); Calcium 9.1 mg/dL (8.4-10.2); Carbon Dioxide 26 mmol/L (22-29); Chloride 103 mmol/L (96-108); Cholesterol 189 mg/dL (<200); Estimated Glomerular Filt Rate > 60; HDL Cholesterol 67 mg/dL (>40); Potassium 4.1 mmol/L (3.3-5.1); Sodium 136 mmol/L (135-145); Total Protein 6.8 g/dL (6.5-8.0); Triglycerides 49 mg/dL (<150)
[2025-01-22 11:25] LABS: Free T4 (Free Thyroxine) 1.06 ng/dL (0.71-1.85)
[2025-01-22 11:42] LABS: Folate 8.6 ng/mL (> or = 4.0); Vitamin B12 245 pg/mL (200-900)
== END 2025-01-22 07:37 | disposition home or self-care (01) ==
LOC: HO.10HDL 07:36
DX: Z00.00 Encounter for general adult medical examination without abnormal findings (principal); E03.9 Hypothyroidism, unspecified; E78.00 Pure hypercholesterolemia, unspecified; E11.65 Type 2 diabetes mellitus with hyperglycemia; Z13.21 Encounter for screening for nutritional disorder
CPT/HCPCS: 36415; 80053; 80061; 82306; 82607; 82746; 83036; 84439; 84443; 85025